=== PATIENT | female | born 1950 | race Caucasian/White ===

== ENCOUNTER 2018-02-08 16:31 | Emergency (ER) | payer SELFPAY ==
[~2018-02-08] VITALS: Ht 157.5 cm; Wt 60.0 kg
[2018-02-08] MEDS ORDERED: SODIUM CHLOR 0.9% 1000 ML INJ 1,000 ML IV SCH (16:42)
[2018-02-08] MEDS ORDERED: ONDANSETRON HCL 4 MG/2 ML VIAL IVP ONE (16:45)
--- NOTE | 2018-02-08 16:55 | PD ---
HPI Chief Complaint: fall Time Seen by Provider: 16:42 Travel History International Travel<30 days: No Contact w/Intl Traveler<30days: No Traveled to known affect area: No History of Present Illness HPI Patient was brought in by EMS. Patient was witnessed walking out of [place] (local bar) when she seemed to completely just fall face forward. Patient did not get up immediately by herself and was helped up by strangers, she was there by herself, so it is unknown as to what her baseline mental status is like. Patient was backboarded check back by EMS and placed in a c- collar Patient denies any known drug allergies Patient denies any significant medical or surgical history. FORMERLY [facility], [facility] Social History Alcohol Use: Yes Tobacco Use: No Allergies-Medications (Allergen,Severity, Reaction): Coded Allergies: No Known Allergies (Unverified , 02/08/18) Review of Systems General / Constitutional: No: Fever Eyes: No: Visual changes HENT: Positive: Other (Scalp hematoma), No: Headaches Cardiovascular: No: Chest Pain or Discomfort Respiratory: No: Shortness of Breath Gastrointestinal: No: Abdominal Pain Genitourinary: No: Dysuria Musculoskeletal: No: Pain Skin: No Rash Neurologic: Positive: Syncope Psychiatric: No: Depression Endocrine: No: Polydipsia Hematologic/Lymphatic: No: Easy Bruising Physical Exam Exam Limitations: Intoxication Narrative GENERAL: SKIN: Warm and dry. Abrasions to left elbow HEAD: Posterior scalp hematoma noted, no crepitus, no step-offs. Normocephalic. EYES: Pupils equal and round. No scleral icterus. No injection or drainage. ENT: No nasal bleeding or discharge. Mucous membranes pink and moist. No hemotympanum NECK: Trachea midline. No JVD. CARDIOVASCULAR: Regular rate and rhythm. RESPIRATORY: No accessory muscle use. Clear to auscultation. Breath sounds equal bilaterally. GASTROINTESTINAL: Abdomen soft, non-tender, nondistended. Hepatic and splenic margins not palpable. MUSCULOSKELETAL: Extremities without clubbing, cyanosis, or edema. No obvious deformities. NEUROLOGICAL: Awake and alert. No obvious cranial nerve deficits. Motor grossly within normal limits. Five out of 5 muscle strength in the arms and legs. Normal speech. PSYCHIATRIC: Appropriate mood and affect; insight and judgment normal. Data Data Last Documented VS Vital Signs Date Time Temp Pulse Resp B/P (MAP) Pulse Ox O2 Delivery O2 Flow Rate FiO2 02/08/18 17:16 98 Room Air 02/08/18 17:02 97.4 82 20 141/69 (93) Orders Orders Complete Blood Count With Diff (02/08/18 16:42) Comprehensive Metabolic Panel (02/08/18 16:42) Lipase (02/08/18 16:42) Urinalysis - C+S If Indicated (02/08/18 16:42) Iv Access Insert/Monitor (02/08/18 16:42) Ecg Monitoring (02/08/18 16:42) Oximetry (02/08/18 16:42) NPO (02/08/18 16:42) Ondansetron Inj (Zofran Inj) (02/08/18 16:45) Sodium Chlor 0.9% 1000 Ml Inj (Ns 1000 M (02/08/18 16:42) Ct Brain W/O Iv Contrast(Rout) (02/08/18 16:42) Alcohol (Ethanol) (02/08/18 16:42) Ct Cerv Spine W/O Contrast (02/08/18 16:42) Urine Culture (02/08/18 17:50) Labs Laboratory Tests Test 02/08/18 17:00 02/08/18 17:50 White Blood Count 8.8 TH/MM3 Red Blood Count 3.34 MIL/MM3 Hemoglobin 12.0 GM/DL Hematocrit 33.4 % Mean Corpuscular Volume 99.9 FL Mean Corpuscular Hemoglobin 36.0 PG Mean Corpuscular Hemoglobin Concent 36.0 % Red Cell Distribution Width 13.1 % Platelet Count 305 TH/MM3 Mean Platelet Volume 7.5 FL Neutrophils (%) (Auto) 67.2 % Lymphocytes (%) (Auto) 23.1 % Monocytes (%) (Auto) 7.6 % Eosinophils (%) (Auto) 1.4 % Basophils (%) (Auto) 0.7 % Neutrophils # (Auto) 5.9 TH/MM3 Lymphocytes # (Auto) 2.0 TH/MM3 Monocytes # (Auto) 0.7 TH/MM3 Eosinophils # (Auto) 0.1 TH/MM3 Basophils # (Auto) 0.1 TH/MM3 CBC Comment DIFF FINAL Differential Comment Blood Urea Nitrogen 12 MG/DL Creatinine 0.80 MG/DL Random Glucose 82 MG/DL Total Protein 7.2 GM/DL Albumin 3.7 GM/DL Calcium Level 8.5 MG/DL Alkaline Phosphatase 73 U/L Aspartate Amino Transf (AST/SGOT) 15 U/L Alanine Aminotransferase (ALT/SGPT) 13 U/L Total Bilirubin 0.3 MG/DL Sodium Level 140 MEQ/L Potassium Level 3.2 MEQ/L Chloride Level 107 MEQ/L Carbon Dioxide Level 22.0 MEQ/L Anion Gap 11 MEQ/L Estimat Glomerular Filtration Rate 72 ML/MIN Lipase 116 U/L Ethyl Alcohol Level 174 MG/DL Urine Color LIGHT-YELLOW Urine Turbidity CLEAR Urine pH 7.0 Urine Specific [place] 1.005 Urine Protein NEG mg/dL Urine Glucose (UA) NEG mg/dL Urine Ketones NEG mg/dL Urine Occult Blood NEG Urine Nitrite NEG Urine Bilirubin NEG Urine Urobilinogen LESS THAN 2.0 MG/DL Urine Leukocyte Esterase SMALL Urine RBC LESS THAN 1 /hpf Urine WBC 10 /hpf Urine Squamous Epithelial Cells 1 /hpf Urine Bacteria FEW /hpf Urine Hyaline Casts 2 /lpf Microscopic Urinalysis Comment CULTURE INDICATED MDM Medical Decision Making Medical Screen Exam Complete: Yes Emergency Medical Condition: Yes Medical Record Reviewed: Yes Differential Diagnosis Intracranial hemorrhage versus C-spine injury versus alcohol induced syncope versus anemia versus dehydration versus electrolyte abnormality Narrative Course CBC shows no leukocytosis, no anemia, normal platelet count, and no left shift UA is consistent with possible UTI Alcohol level is 174 Electrolytes are within normal limits with the exception of mild hypokalemia of 3.2, normal kidney/liver/pancreatic functions Currently awaiting CT head and C-spine as of 182 The head is read by radiologist as negative for intracranial hemorrhage, skull fracture, or brain mass. CT C-spine shows degenerative changes as noted without fractures or listhesis per radiology report Diagnosis Primary Impression: Alcohol-induced syncope Additional Impressions: Abrasions Scalp hematoma Patient Instructions: Alcohol Intoxication (DC), General Instructions, Syncope (ED) Disposition: 01 DISCHARGE HOME Condition: Stable Berlin Skaggs MD Feb 08, 2018 16:55
[2018-02-08 17:02] VITALS: BP 141/69; PULSE 82; RESP 20; TEMP 97.4; O2SAT 97
[2018-02-08 17:16] VITALS: O2SAT 98
[2018-02-08 17:20] LABS: AUTOMATED NEUTROPHIL # 5.9 TH/MM3 (1.8-7.7); BASOPHIL # 0.1 TH/MM3 (0-0.2); BASOPHIL % 0.7 % (0.0-2.0); EOSINOPHIL # 0.1 TH/MM3 (0-0.4); EOSINOPHIL % 1.4 % (0.0-4.0); HEMATOCRIT 33.4 % (35.0-46.0); LYMPH % 23.1 % (9.0-44.0); MEAN CELL VOLUME 99.9 FL (80.0-100.0); MEAN PLATELET VOLUME 7.5 FL (7.0-11.0); MONO % 7.6 % (0.0-8.0); MONOCYTE # 0.7 TH/MM3 (0-0.9); NEUT % 67.2 % (16.0-70.0); PLATELET COUNT 305 TH/MM3 (150-450); RED BLOOD COUNT 3.34 MIL/MM3 (4.00-5.30); RED CELL DISTRIBUTION WIDTH 13.1 % (11.6-17.2); WHITE BLOOD COUNT 8.8 TH/MM3 (4.0-11.0)
[2018-02-08 17:53] LABS: ALBUMIN 3.7 GM/DL (3.4-5.0); BLOOD UREA NITROGEN 12 MG/DL (7-18); CALCIUM 8.5 MG/DL (8.5-10.1); CHLORIDE 107 MEQ/L (98-107); GLOMERULAR FILTRATION RATE 72 ML/MIN (>89); GLUCOSE,RANDOM 82 MG/DL (74-106); SODIUM (NA) 140 MEQ/L (136-145)
[2018-02-08 17:59] LABS: BACTERIA, URINE FEW /hpf; BILIRUBIN, URINE NEG (NEG); BLOOD, URINE NEG (NEG); GLUCOSE,URINE NEG (NEG); HYALINE CAST, URINE 2 /lpf (RARE); KETONE, URINE NEG (NEG); NITRITE,URINE NEG (NEG); SQUAMOUS EPITHELIAL CELL URINE 1 /hpf (0-5); URINE COLOR LIGHT-YELLOW (YELLW/STRAW); URINE LEUKOCYTE ESTERASE SMALL (NEG)
[2018-02-08 18:04] LABS: ALKALINE PHOSPHATASE 73 U/L (45-117); ALT (GPT) 13 U/L (10-53); AST (GOT) 15 U/L (15-37); TOTAL BILIRUBIN ADULT 0.3 MG/DL (0.2-1.0); TOTAL PROTEIN 7.2 GM/DL (6.4-8.2)
--- NOTE | 2018-02-08 18:30 | RADRPT ---
EXAM DATE/TIME: 02/08/2018 17:59 [facility] COMPARISON: No previous studies available for comparison. INDICATIONS : Trauma, fall. RADIATION DOSE: 56.35 CTDIvol (mGy) MEDICAL HISTORY : None SURGICAL HISTORY : None. ENCOUNTER: Initial ACUITY: 1 day PAIN SCALE: 5/10 LOCATION: Bilateral head TECHNIQUE: Multiple contiguous axial images were obtained of the head. Using automated exposure control and adj ustment of the mA and/or kV according to patient size, radiation dose was kept as low as reasonably a chievable to obtain optimal diagnostic quality images. DICOM format image data is available electro nically for review and comparison. FINDINGS: There is diffuse atrophy, patchy periventricular white matter disease, and multiple remote periventri cular lacunar infarcts basal ganglia lacunar infarcts. There also pontine lacunar infarcts. No fractu res. No signs of acute infarct, hemorrhage or mass. Prominent carotid artery calcification. CONCLUSION: No acute disease. Luis Castano MD on February 08, 2018 at 18:25 Board Certified Radiologist. This report was verified electronically.
--- NOTE | 2018-02-08 18:34 | RADRPT ---
EXAM DATE/TIME: 02/08/2018 17:59 [facility] COMPARISON: No previous studies available for comparison. INDICATIONS : Trauma, fall. RADIATION DOSE: 17.87 CTDIvol (mGy) MEDICAL HISTORY : None SURGICAL HISTORY : None. ENCOUNTER: Initial ACUITY: 1 day PAIN SCALE: 5/10 LOCATION: Bilateral neck TECHNIQUE: Volumetric scanning of the cervical spine was performed. Multiplanar reconstructions in the sagittal, coronal and oblique axial planes were performed. Using automated exposure control and adjustment o f the mA and/or kV according to patient size, radiation dose was kept as low as reasonably achievable to obtain optimal diagnostic quality images. DICOM format image data is available electronically f or review and comparison. FINDINGS: There is severe disc space narrowing at C4-5 through C6-7 with multilevel osteophyte formation and un covertebral hypertrophy. No prevertebral soft tissue swelling or compression deformity. The odontoid process is intact. Alignment is normal. Cervicothoracic junction is approximated. There is uncoverteb ral hypertrophy at C4-5 through C6-7 of moderate severity. Prominent bilateral carotid artery calcifi cations are noted. There is severe canal stenosis at C4-5, C5-6 secondary to disc osteophyte disease. CONCLUSION: Degenerative changes are noted without fracture or listhesis. Luis Castano MD on February 08, 2018 at 18:28 Board Certified Radiologist. This report was verified electronically.
[2018-02-08] MEDS ORDERED: cefTRIAXone INJ 1,000 MG in SODIUM CHLORIDE 0.9% INJ 100 ML IV ONE (18:45)
--- NOTE | 2018-02-09 08:58 | EKG ---
Date Performed: 02/08/2018 Time Performed: 16:54:03 PTAGE: 67 years EKG: Sinus rhythm POSSIBLE LEFT ATRIAL ENLARGEMENT INCOMPLETE RIGHT BUNDLE BRANCH BLOCK NONSPECIFIC T-WAVE ABNORMALITY BORDERLINE ECG NO PREVIOUS TRACING DOCTOR: Jamin Harper Interpretating Date/Time 02/09/2018 08:57:00
== END 2018-02-08 19:35 | disposition home or self-care (01) ==
LOC: NEPC 16:31
DX: F10.129 Alcohol abuse with intoxication, unspecified (principal); Y90.6 Blood alcohol level of 120-199 mg/100 ml; R55 Syncope and collapse; S50.312A Abrasion of left elbow, initial encounter; S00.03XA Contusion of scalp, initial encounter; W19.XXXA Unspecified fall, initial encounter; R94.31 Abnormal electrocardiogram [ECG] [EKG]; R82.79 Other abnormal findings on microbiological examination of urine; E87.6 Hypokalemia
CPT/HCPCS: 70450; 72125; 80053; 80307; 81001; 83690; 85025; 87077; 87086; 87186; 93005; 96361; 96365; 96375; 99285; J0696; J2405; J7030

== ENCOUNTER 2018-05-29 19:41 | Inpatient (IN) ==
[2018-05-29] MEDS ORDERED: Sod Chloride 0.9% Inj 1,000 ML IV.SIG ONE ×4 (20:01→22:41)
[2018-05-29] MEDS ORDERED: Folic Acid Inj 1 MG/0.2 ML VIAL IM ONE (20:02)
--- NOTE | 2018-05-29 20:14 | ED ---
HPI General Chief Complaint: Dizziness Stated Complaint: Evac/Medical Time Seen by Provider: 05/29/18 19:54 Source: patient, EMS and RN notes reviewed Mode of arrival: EMS Limitations: altered mental status History of Present Illness HPI Narrative: the patient is a 68-year-old female past medical history significant for hypertension brought in by EMS after she had an episode where she fell at a local [place] station. Apparently patient has been drinking all day got out of her car and collapsed on the floor. She had an episode of defecation. Patient states that she cannot remember exactly what happened. She reports that she only had 3 glasses of wine today. On arrival her blood pressure was 70 systolic however she is alert responding to commands without any signs of deficits oriented to place time and person. MD complaint: dizziness, lightheadedness and near syncope Time: 19:45 Timing: sudden onset Description: near-syncope History of similar episodes: Yes Related Data Home Medications Medication Instructions Recorded Confirmed Unable to Obtain Home Meds 05/29/18 05/29/18 Allergies Allergy/AdvReac Type Severity Reaction Status Date / Time No Known Allergies Allergy Verified 05/29/18 19:49 Review of Systems ROS Unobtainable All other systems reviewed negative except as stated in HPI Constitutional Reports as per HPI Eyes Denies change in vision ENT Denies headache(s) and Denies nasal congestion Cardiovascular Denies chest pain Respiratory Denies dyspnea Gastrointestinal Denies abdominal pain and Reports diarrhea Genitourinary Denies difficulty voiding Musculoskeletal Denies myalgias Comments: abrasion contusion of the left elbow with soft tissue swelling. ROM intact Integumentary/Breasts Denies rash Comments: abrasion on left elbow Neurologic Denies headache(s) Psychiatric Denies depression Comments: intoxicated Endocrine Denies polyuria Hematologic/Lymphatic Denies easy bruising REPLACED BY [facility] Medical History Medical History CVA (cerebral vascular accident) (Acute) HTN (hypertension) (Acute) Social History Social History Substance History: No History of Abuse Smoking Status: Current every day smoker Tobacco Type: Cigarettes How Often Do You Have a Drink Containing Alcohol: 2 to 3 times a week Recent Travel in [facility] within the Last 8 Weeks: No Immunization History Tetanus Immunization: Unsure Hx Influenza Vaccine This Season: No Exam Narrative Exam Narrative: GENERAL: Patient in no distress but hypotensive. Alert and oriented able to respond to questions. Appears intoxicated. Unkempt appears older than age. SKIN: Focused skin assessment warm/dry. Abrasion on left elbow. HEAD: Atraumatic. Normocephalic. EYES: Pupils equal and round. No scleral icterus. No injection or drainage. ENT: No nasal bleeding or discharge. Mucous membranes pink and moist. NECK: Trachea midline. No JVD. CARDIOVASCULAR: Regular rate and rhythm. No murmur appreciated. RESPIRATORY: No accessory muscle use. Clear to auscultation. Breath sounds equal bilaterally. GASTROINTESTINAL: Abdomen soft, non-tender, nondistended. Hepatic and splenic margins not palpable. MUSCULOSKELETAL: No obvious deformities. No clubbing. No cyanosis. No edema. Contusion tenderness to palpation over the left elbow. Full range of motion. NEUROLOGICAL: Awake and alert. No obvious cranial nerve deficits. Motor grossly within normal limits. Normal speech. PSYCHIATRIC: Appropriate mood and affect; insight and judgment normal. Course Reevaluation(s) Reevaluation #1: Patient has received 1.5 L normal saline repeat blood pressures 100 on one systolic. She feels much better just return from CT suite. Time: 20:34 Reevaluation #2: Patient potassium of 2.7 glucose of 41 lactic acid 4.5. X-ray suggestive of pneumonia. We will give her Rocephin and Zithromax. She is responding well to fluid resuscitation. She is going to receive calcium chloride via peripheral IV and a D50. Folate and thiamine have already been given IM. Time: 22:51 Reevaluation #3: Blood pressures improving to 99/53. Patient states he feels nauseous give Zofran ODT. Time: 23:18 Additional Reevaluation(s): Blood pressure is now 111/65. Patient is alert and oriented. Initial infusion of potassium chloride has been completed we will give her 20 mEq p.o. since is able to tolerate by mouth intake. Initial Documented Vital Signs Pulse Rate 77 05/29/18 19:49 Respiratory Rate 18 05/29/18 19:49 Blood Pressure 66/42 L 05/29/18 19:49 Pulse Oximetry 97 05/29/18 19:49 Last Documented Vital Signs Temperature 98.1 F 07/20/18 20:34 Pulse Rate 92 H 05/29/18 23:51 Respiratory Rate 18 05/29/18 23:51 Blood Pressure 118/63 05/29/18 23:51 Pulse Oximetry 98 05/29/18 23:51 Critical Care Time Critical Care Time: Yes Total Critical Care Time: 45 Attestation: Aggregate critical care time was 45 minutes. Time to perform other separately billable procedures was not included in the critical care time. My time did not include minutes spent treating any other patients simultaneously or on activities that did not directly contribute to the patient's treatment. The services I provided to this patient were to treat and/or prevent clinically significant deterioration that could result in: loss of current lifestyle , I provided critical care services requiring my management, as noted below: Chart data review, documentation time, medication orders and management, vital sign assessments/reviewing monitor data, ordering and reviewing lab tests, ordering and interpreting/reviewing x-rays and diagnostic studies, care of the patient and discussion of the patient with the admitting physicians. Medical Decision Making MDM Narrative Medical decision making narrative: Patient with hypertension arrival hypokalemia of 2.7. Glucose of 41. She received several liters of fluids with response to resuscitation. Lactate also markedly elevated at 4.5 without leukocytosis or fever and findings on chest x-ray suggestive of pneumonia. Patient received fluids per sepsis protocol as well as IV antibiotics Rocephin and Zithromax. Also with diarrhea which began may be contributing to her hypotension. Patient appears very dry. She is a daily drinker and does not appear to be drinking a lot of water. Extremely dry membranous mucosa of the oral cavity. Responding well to fluids. Patient discussed with ICU attending. Tox screen positive for alcohol level 137. On multiple reevaluation. Also UA with signs of possible urinary tract infection. Culture sent. Patient will be admitted to the ICU. Lab Data Lab results reviewed: Yes I reviewed the patient's lab results. Result diagrams: 05/29/18 20:28 05/29/18 20:28 Lab Results 05/29/18 05/29/18 05/29/18 Range/Units 20:28 20:28 20:28 WBC 6.9 (4.0-11.0) th/mm3 RBC 2.97 L (4.00-5.30) mil/mm3 Hgb 10.4 L (11.6-15.3) gm/dL Hct 29.6 L (35.0-46.0) % MCV 99.4 (80.0-100.0) fL MCH 35.1 H (27.0-34.0) pg MCHC 35.3 (32.0-36.0) % RDW 13.3 (11.6-17.2) % Plt Count 256 (150-450) th/mm3 MPV 7.6 (7.0-11.0) fL Neut % (Auto) 66.3 (16.0-70.0) % Lymph % (Auto) 23.8 (9.0-44.0) % [place] % (Auto) 7.3 (0.0-8.0) % Eos % (Auto) 1.6 (0.0-4.0) % Baso % (Auto) 1.0 (0.0-2.0) % Neut # (Auto) 4.6 (1.8-7.7) th/mm3 Lymph # (Auto) 1.6 (1.0-4.8) th/mm3 [place] # (Auto) 0.5 (0.0-0.9) th/mm3 Eos # (Auto) 0.1 (0.0-0.4) th/mm3 Baso # (Auto) 0.1 (0.0-0.2) th/mm3 WBC Differential . Differential Comment Auto diff final Sodium 146 H (136-145) meq/L Potassium 2.7 L* (3.5-5.1) meq/L Chloride 113 H (98-107) meq/L Carbon Dioxide 17.6 L (21.0-32.0) meq/L Anion Gap 15 (5-15) meq/L BUN 12 (7-18) mg/dL Creatinine 1.03 H (0.50-1.00) mg/dL Estimated GFR 54 L (>89) mL/min POC Glucose (68-110) mg/dl Random Glucose 41 L* (74-106) mg/dL Lactic Acid 4.5 H* (0.4-2.0) mmol/L Calcium 8.1 L (8.5-10.1) mg/dL Magnesium 1.5 (1.5-2.5) mg/dL Total Bilirubin 0.3 (0.2-1.0) mg/dL AST 15 (15-37) U/L ALT 14 (10-53) U/L Alkaline Phosphatase 61 (45-117) U/L Troponin I Less than 0.02 L (0.02-0.05) ng/mL Total Protein 5.8 L (6.4-8.2) g/dL Albumin 3.2 L (3.4-5.0) g/dL Urine Color (Yellw/Straw) Urine Clarity (Clear) Urine pH (5.0-8.5) Ur Specific [place] (1.002-1.035) Urine Protein (Neg-Trace) mg/dL Urine Glucose (UA) (Negative) mg/dL Urine Ketones (Negative) mg/dL Urine Occult Blood (Negative) Urine Nitrate (Negative) Urine Bilirubin (Negative) Urine Urobilinogen (Less than 2) mg/dL Ur Leukocyte Esterase (Negative) Urine WBC (0-5) /hpf Ur Squamous Epith Cells (0-5) /hpf Urine Mucus (Occasional) /lpf Micro UA Comment Urine Culture Comments Serum Alcohol 136 H (0-5) mg/dL 05/29/18 05/29/18 Range/Units 23:33 23:34 WBC (4.0-11.0) th/mm3 RBC (4.00-5.30) mil/mm3 Hgb (11.6-15.3) gm/dL Hct (35.0-46.0) % MCV (80.0-100.0) fL MCH (27.0-34.0) pg MCHC (32.0-36.0) % RDW (11.6-17.2) % Plt Count (150-450) th/mm3 MPV (7.0-11.0) fL Neut % (Auto) (16.0-70.0) % Lymph % (Auto) (9.0-44.0) % [place] % (Auto) (0.0-8.0) % Eos % (Auto) (0.0-4.0) % Baso % (Auto) (0.0-2.0) % Neut # (Auto) (1.8-7.7) th/mm3 Lymph # (Auto) (1.0-4.8) th/mm3 [place] # (Auto) (0.0-0.9) th/mm3 Eos # (Auto) (0.0-0.4) th/mm3 Baso # (Auto) (0.0-0.2) th/mm3 WBC Differential Differential Comment Sodium (136-145) meq/L Potassium (3.5-5.1) meq/L Chloride (98-107) meq/L Carbon Dioxide (21.0-32.0) meq/L Anion Gap (5-15) meq/L BUN (7-18) mg/dL Creatinine (0.50-1.00) mg/dL Estimated GFR (>89) mL/min POC Glucose 134 H (68-110) mg/dl Random Glucose (74-106) mg/dL Lactic Acid (0.4-2.0) mmol/L Calcium (8.5-10.1) mg/dL Magnesium (1.5-2.5) mg/dL Total Bilirubin (0.2-1.0) mg/dL AST (15-37) U/L ALT (10-53) U/L Alkaline Phosphatase (45-117) U/L Troponin I (0.02-0.05) ng/mL Total Protein (6.4-8.2) g/dL Albumin (3.4-5.0) g/dL Urine Color Colorless (Yellw/Straw) Urine Clarity Clear (Clear) Urine pH 6.0 (5.0-8.5) Ur Specific [place] 1.003 (1.002-1.035) Urine Protein Negative (Neg-Trace) mg/dL Urine Glucose (UA) 50 (Negative) mg/dL Urine Ketones Negative (Negative) mg/dL Urine Occult Blood Negative (Negative) Urine Nitrate Negative (Negative) Urine Bilirubin Negative (Negative) Urine Urobilinogen Less than 2 (Less than 2) mg/dL Ur Leukocyte Esterase Negative (Negative) Urine WBC Less than 1 (0-5) /hpf Ur Squamous Epith Cells <1 (0-5) /hpf Urine Mucus Few H (Occasional) /lpf Micro UA Comment Cath-culture not ind Urine Culture Comments Cath-cult not ind Serum Alcohol (0-5) mg/dL Imaging Data Radiologist's impression: Chest X-Ray 05/29/18 20:02 CONCLUSION: Nonconsolidative right infrahilar infiltrate. Elbow X-Ray 05/29/18 20:02 CONCLUSION: No evidence of recent bony injury. Possible small foreign body in the antecubital region. Head CT 05/29/18 20:02 CONCLUSION: 1. No acute findings in the brain. 2. Stable right-sided lacunar infarcts. . ECG Data EKG Prior to Arrival: Yes Attestation: I personally reviewed and interpreted this ECG as follows: Prior ECG tracings: not available for review Interpretation: EKG obtained at 8 PM revealed normal sinus rhythm 75 bpm. Left atrial enlargement. Normal axis. Incomplete right bundle branch block. LA interval 160 ms. QTc prolonged at 504 ms no signs of acute ischemia. Nonspecific ST-T wave abnormalities. Discharge Plan Discharge Disposition Patient Disposition: 30 Still Patient Discharge Condition Condition: Critical Discharge Details Diagnosis: Severe sepsis, Acute hypokalemia, Pneumonia, Alcohol intoxication Physicians Team ED Provider: Migel Colon Primary Care Provider: UNKNOWN, Attending Provider: Kianna Mckeon Discharge Interventions Interventions: Vital Signs Last Done: 05/29/18 23:51 Status ED Status: Admitted Patient
--- NOTE | 2018-05-29 21:03 | CT ---
EXAM DATE: 05/29/2018 8:35 PM EDT AGE/SEX: 68 years / Female INDICATIONS: Multiple falls. CLINICAL DATA: This is the patient's initial encounter. Patient reports that signs and symptoms have been present for 1 day and indicates a pain score of 3/10. MEDICAL/SURGICAL HISTORY: Cerebrovascular disease. Hypertension. None. RADIATION DOSE: 56.35 CTDI (mGy) COMPARISON: [facility] [place], CT BRAIN W/O CONTRAST, 02/08/2018. . TECHNIQUE: CT of the head without contrast. Using automated exposure control and adjustment of the mA and/or kV according to patient size, radiation dose was kept as low as reasonably achievable to ob tain optimal diagnostic quality images. DICOM format image data is available electronically for revi ew and comparison. FINDINGS: Cerebrum: The ventricles are normal for age. No evidence of midline shift, mass lesion, hemorrhage or acute infarction. Lacunar infarcts in the right caudate body and right posterior limb internal ca psule, unchanged from prior exam 02/08/2018. No extraaxial fluid collections are seen. Posterior Fossa: The cerebellum and brainstem are intact. Stable small lacunar infarct in the right paracentral mraietta. The 4th ventricle is midline. The cerebellopontine angle is unremarkable. Extracranial: The visualized portion of the orbits is intact. Skull: The calvaria is intact. No evidence of skull fracture. CONCLUSION: 1. No acute findings in the brain. 2. Stable right-sided lacunar infarcts. . Electronically signed by: Juan Carlos Mcadams MD 05/29/2018 9:02 PM EDT
[2018-05-29 21:09] LABS: Baso # (Auto) 0.1 th/mm3 (0.0-0.2); Eos # (Auto) 0.1 th/mm3 (0.0-0.4); Eos % (Auto) 1.6 % (0.0-4.0); Hematocrit 29.6 % (35.0-46.0); Hemoglobin 10.4 gm/dL (11.6-15.3); Lymph # (Auto) 1.6 th/mm3 (1.0-4.8); Lymph % (Auto) 23.8 % (9.0-44.0); Mean Corpuscular HGB Conc 35.3 % (32.0-36.0); Mean Corpuscular Hemoglobin 35.1 pg (27.0-34.0); Mean Corpuscular Volume 99.4 fL (80.0-100.0); Mean Platelet Volume 7.6 fL (7.0-11.0); Mono # (Auto) 0.5 th/mm3 (0.0-0.9); Mono % (Auto) 7.3 % (0.0-8.0); Neut # (Auto) 4.6 th/mm3 (1.8-7.7); Neut % (Auto) 66.3 % (16.0-70.0); Platelet Count 256 th/mm3 (150-450); Red Blood Count 2.97 mil/mm3 (4.00-5.30); Red Cell Distribution Width 13.3 % (11.6-17.2); White Blood Count 6.9 th/mm3 (4.0-11.0)
--- NOTE | 2018-05-29 21:16 | XR ---
EXAM DATE: 05/29/2018 9:10 PM EDT AGE/SEX: 68 years / Female INDICATIONS: Shortness of breath. CLINICAL DATA: This is the patient's initial encounter. Patient reports that signs and symptoms have been present for 1 day and indicates a pain score of 0/10. MEDICAL/SURGICAL HISTORY: None. None. COMPARISON: [facility], XR CHEST PA AND LAT, 07/08/2017. . FINDINGS: A single AP view of the chest demonstrates the lungs to be symmetrically aerated. There is an ill-def ined filtrate without consolidation right infrahilar region. No loss of delineation of the right hear t border.. Both hemidiaphragms well delineated. The cardiomediastinal contours are unremarkable. Def ormity of the posterior upper left ribs characteristic of prior surgery, unchanged from prior. CONCLUSION: Nonconsolidative right infrahilar infiltrate. Electronically signed by: Juan Carlos Mcadams MD 05/29/2018 9:15 PM EDT
--- NOTE | 2018-05-29 21:18 | XR ---
EXAM DATE: 05/29/2018 9:12 PM EDT AGE/SEX: 68 years / Female INDICATIONS: Left elbow pain, fall. CLINICAL DATA: This is the patient's initial encounter. Patient reports that signs and symptoms have been present for 1 day and indicates a pain score of 8/10. MEDICAL/SURGICAL HISTORY: None. None. COMPARISON: No prior exams available for comparison. FINDINGS: Bony structures are intact and in normal alignment. Joints are intact without dislocation or signifi cant arthropathy. Osseous density is normal. On the lateral view, there is a punctate opacity in the antecubital region suggesting possible radiopaque foreign body. Angiocath present in the mid forearm . CONCLUSION: No evidence of recent bony injury. Possible small foreign body in the antecubital region. Electronically signed by: Juan Carlos Mcadams MD 05/29/2018 9:16 PM EDT
[2018-05-29] MEDS ORDERED: Azithromycin Inj 500 MG in Sodium Chlor 0.9% Inj 250 ML IV.SIG ONE (21:35)
[2018-05-29 21:41] LABS: Alanine Aminotransferase 14 U/L (10-53); Albumin 3.2 g/dL (3.4-5.0); Alkaline Phosphatase 61 U/L (45-117); Anion Gap 15 meq/L (5-15); Aspartate Aminotransferase 15 U/L (15-37); Blood Urea Nitrogen 12 mg/dL (7-18); Calcium 8.1 mg/dL (8.5-10.1); Carbon Dioxide 17.6 meq/L (21.0-32.0); Chloride 113 meq/L (98-107); Glomerular Filtration Rate 54 mL/min (>89); Magnesium 1.5 mg/dL (1.5-2.5); Sodium 146 meq/L (136-145); Total Protein 5.8 g/dL (6.4-8.2)
[2018-05-29 21:45] LABS: Alcohol 136 mg/dL (0-5); Potassium 2.7 meq/L (3.5-5.1)
[2018-05-29 21:46] LABS: Glucose,Random 41 mg/dL (74-106)
[2018-05-29] MEDS ORDERED: Potassium Chlor 10 mEq Premix 10 MEQ/100 ML PIGGYBACK IV.SIG ONE (21:46)
[2018-05-29] MEDS ORDERED: Dextrose 50% in Water 50 ML Vial IV.PUSH ONE (21:47)
[2018-05-30] LABS: Bilirubin,Urine Negative (Negative); Clarity,Urine Clear (Clear); Color,Urine Colorless (Yellw/Straw); Glucose,Urine (UA) 50 mg/dL (Negative); Leukocyte Esterase,Urine Negative (Negative); Mucus,Urine Few /lpf (Occasional); Nitrite,Urine Negative (Negative); Specific Gravity,Urine 1.003 (1.002-1.035); Squamous Epithelial Cell,Urine <1 /hpf (0-5)
[2018-05-30] MEDS ORDERED: Dextrose 50% in Water 50 ML Vial IV.PUSH PRN (00:52)
[2018-05-30] MEDS ORDERED: Sodium Phosphate Inj 30 MMOL in Sodium Chlor 0.9% Inj 250 ML IV.SIG PRN (00:53)
[2018-05-30] MEDS ORDERED: Potassium Phosphate 500 MG Soluble Tablet PO PRN ×2 (00:53)
[2018-05-30] MEDS ORDERED: Potassium Phosphate Inj 30 MMOL in Sodium Chlor 0.9% Inj 250 ML IV.SIG PRN (00:53)
[2018-05-30] MEDS ORDERED: Magnesium Sulfate Inj 4 GM in Sodium Chlor 0.9% Inj 92 ML IV.SIG PRN (00:53)
[2018-05-30] MEDS ORDERED: Potassium Chlor 20 mEq Premix 20 MEQ/100 ML PIGGYBACK IV.SIG PRN ×2 (00:53)
[2018-05-30] MEDS ORDERED: Potassium Chlor 40 mEq Premix 40 MEQ/100 ML PIGGYBACK IV.SIG PRN ×2 (00:53)
[2018-05-30] MEDS ORDERED: Magnesium Oxide 400 MG Tablet PO PRN (00:53)
[2018-05-30] MEDS ORDERED: Magnesium Sulfate Inj 2 GM in Sodium Chlor 0.9% Inj 96 ML IV.SIG PRN (00:53)
[2018-05-30] MEDS ORDERED: Potassium Chloride 25 MEQ Effervescent Tablet PO PRN (00:53)
--- NOTE | 2018-05-30 01:02 | P.HPCC ---
History of Present Illness Service: Critical care medicine Primary Care Physician: UNKNOWN History of Present Illness: 68-year-old female with past medical history of alcohol abuse, pancreatitis, seizures, hypertension. She was brought to [facility] emergency department for near syncopal event. She had been drinking during the day and got out of the car and fell. Per bystander report she stumbled to the ground but did not have direct head trauma. She defecated and soiled herself; no reported seizure activity.. Upon arrival to the ED she was not able to provide significant history. CT brain demonstrated stable lacunar infarcts. Chest x-ray demonstrated right middle lobe infiltrate. She had no leukocytosis or fever. She was hypoglycemic with blood glucose 41. She received an amp of D50. Her blood pressure was 66 over 40s with heart rate in the 70s. She was administered 4 L normal saline bolus and blood pressure improved with fluid administration. She is now alert and able to provide the above PMH. She reports 2 day history of diarrhea with ~4 large liquid BM per day. No melena or bright red blood per rectum. This afternoon she developed pain in her mid abdomen, nonradiating. She did has had an episode of nausea with vomiting. She states she is status post cholecystectomy and appendectomy. Colonoscopy 1 year ago with "ten polyps", scheduled for f/u in 2 years. States she takes an unknown antihypertensive which she took earlier this morning. She is also on an unknown anticonvulsant. Reports prior history of diabetes but states she is no longer diabetic and does not take any medication for it. She denies chest pain, shortness of breath, productive cough, headache , dysuria, back pain, flank pain, fever, chills. - Diagnosis (1) Hypovolemic shock (2) ETOH abuse (3) Fall (4) Gastric mass (5) Anemia (6) Dehydration (7) Abdominal pain (8) Diarrhea (9) Acute hypernatremia (10) Hypokalemia (11) Hypoglycemia (12) Tobacco abuse (13) Seizure disorder Inpatient Certification: I certify that the inpatient services were ordered in accordance with Medicare regulations governing the order. This includes certification that hospital inpatient services are reasonable and necessary and in the case of services not specified as inpatient-only under 42 CFR 419.22(n), that they are appropriately provided as inpatient services in accordance to with the 2-midnight benchmark under 43 CFR 412.3(e) Review of Systems Constitutional: Denies headache(s) Eyes: Denies change in vision Cardiovascular: Denies chest pain, Denies fast heart rate, Denies shortness of breath with activity, Denies shortness of breath when lying down Respiratory: Denies change in phlegm color, Denies cough, Denies excessive phlegm production Gastrointestinal: Reports abdominal pain, Reports cramping, Reports excessive passing of gas, Reports loose stools, Reports nausea, Reports vomiting Musculoskeletal: Denies back pain Neurologic: Denies convulsions PMFSH - History History Provided By: Patient, Second Hand / EMT - Medical History Medical History: Medical History (Last Updated 05/30/18 @ 02:04 by Kianna Mckeon MD) Abnormal colonoscopy ETOH abuse HTN (hypertension) Pancreatitis Seizures Tobacco abuse - Surgical History Surgical History: Surgical History (Last Updated 05/30/18 @ 02:04 by Kianna Mckeon MD) Hx of colonoscopy with polypectomy Hx of vascular surgery S/P appy S/P cholecystectomy - Family History Family History: Family History (Last Updated 05/30/18 @ 01:40 by Kianna Mckeon MD) Father Hx of CABG - Tobacco History Tobacco Use In Past 30 Days: Yes Smoking Status: Current every day smoker Tobacco Type: Cigarettes Packs Per Day: 1 Years Smoked: 46 - Alcohol History How Often Do You Have a Drink Containing Alcohol: 4 or more times a week ("3 drinks/day") - Substance Use History Substance History: No History of Abuse - Travel History History of Recent Travel: No Recent Travel in the [place] Within the Last 8 Weeks: No Recent Travel Out of the Country Within the Last 8 Weeks: No - Immunization History Tetanus Immunization: Unsure Hx Influenza Vaccine This Season: No Medications and Allergies Active Medications: Active Medications Dextrose (D50w Vial) 50 ml IV.PUSH UNSCH PRN PRN Reason: PER HYPOGLYCEMIA PROTOCOL Glucagon (Glucagon Inj) 1 mg OTHER PRN PRN PRN Reason: for Hypoglycemia Protocol Magnesium Sulfate Inj 4 gm/ (Sodium Chloride) 100 mls @ 50 mls/hr IV.SIG UNSCH PRN PRN Reason: For Magnesium 0.9 - 1.1 mg/dL Magnesium Sulfate Inj 2 gm/ (Sodium Chloride) 100 mls @ 50 mls/hr IV.SIG UNSCH PRN PRN Reason: For Magnesium 1.2 - 1.6 mg/dL Potassium Chloride (Kcl 40 Meq Premix Inj) 40 meq in 100 mls @ 25 mls/hr IV.SIG Q2H PRN PRN Reason: For Potassium 2.8 - 3.2 mEq/L Potassium Chloride (Kcl 20 Meq Premix Inj) 20 meq in 100 mls @ 50 mls/hr IV.SIG Q2H PRN PRN Reason: For Potassium 3.3 - 3.5 mEq/L Potassium Chloride (Kcl 40 Meq Premix Inj) 40 meq in 100 mls @ 25 mls/hr IV.SIG UNSCH PRN PRN Reason: For Potassium 3.3 - 3.5 mEq/L Potassium Chloride (Kcl 20 Meq Premix Inj) 20 meq in 100 mls @ 50 mls/hr IV.SIG Q2H PRN PRN Reason: For Potassium 2.8 - 3.2 mEq/L Potassium Phosphate 30 mmol/ (Sodium Chloride) 260 mls @ 42 mls/hr IV.SIG UNSCH PRN PRN Reason: SEE LABEL COMMENTS Sodium Phosphate 30 mmol/ (Sodium Chloride) 260 mls @ 42 mls/hr IV.SIG UNSCH PRN PRN Reason: For Phosphorus < 2.5 mg/dL Magnesium Oxide (Mag-Ox) 800 mg PO UNSCH PRN PRN Reason: For Magnesium 1.2 - 1.6 mg/dL Potassium Bicarb/Potassium Chloride (K-Lyte Cl Eff) 50 meq PO UNSCH PRN PRN Reason: For Potassium 3.3 - 3.5 mEq/L Potassium Phosphate (K-Phos Original) 2,000 mg PO Q4H PRN PRN Reason: Phosphorus Less Than 2.5 mg/dL Potassium Phosphate (K-Phos Original) 2,000 mg PO UNSCH PRN PRN Reason: SEE LABEL COMMENTS Allergies Allergy/AdvReac Type Severity Reaction Status Date / Time No Known Allergies Allergy Verified 05/29/18 19:49 Home Medications Medication Instructions Recorded Confirmed Type Unable to Obtain Home Meds 05/29/18 05/29/18 History Results - Labs CBC & Chem 7: 05/30/18 06:55 05/30/18 01:14 Labs: Short CBC 05/29/18 Range/Units 20:28 WBC 6.9 (4.0-11.0) th/mm3 Hgb 10.4 L (11.6-15.3) gm/dL Hct 29.6 L (35.0-46.0) % Plt Count 256 (150-450) th/mm3 BMP 05/29/18 20:28 Sodium 146 H Potassium 2.7 L* Chloride 113 H Carbon Dioxide 17.6 L BUN 12 Creatinine 1.03 H Calcium 8.1 L Cardiac Enzymes 05/29/18 Range/Units 20:28 Troponin I Less than 0.02 L (0.02-0.05) ng/mL Liver Function 05/29/18 Range/Units 20:28 Total Bilirubin 0.3 (0.2-1.0) mg/dL AST 15 (15-37) U/L ALT 14 (10-53) U/L Alkaline Phosphatase 61 (45-117) U/L Albumin 3.2 L (3.4-5.0) g/dL Urine 05/29/18 Range/Units 23:34 Urine Color Colorless (Yellw/Straw) Urine Clarity Clear (Clear) Urine pH 6.0 (5.0-8.5) Ur Specific [place] 1.003 (1.002-1.035) Urine Protein Negative (Neg-Trace) mg/dL Urine Glucose (UA) 50 (Negative) mg/dL - Imaging Impressions Chest X-Ray 05/29/18 20:02 CONCLUSION: Nonconsolidative right infrahilar infiltrate. Elbow X-Ray 05/29/18 20:02 CONCLUSION: No evidence of recent bony injury. Possible small foreign body in the antecubital region. Head CT 05/29/18 20:02 CONCLUSION: 1. No acute findings in the brain. 2. Stable right-sided lacunar infarcts. . Exam Vital signs: Vital Signs 05/29/18 19:49 05/29/18 19:53 05/29/18 20:03 Temperature Pulse Rate 77 75 76 Respiratory Rate 18 18 18 Blood Pressure 66/42 L 70/46 L 80/50 L Pulse Oximetry 97 96 97 05/29/18 20:34 05/29/18 21:22 05/29/18 22:47 Temperature 98.1 F Pulse Rate 77 80 83 Respiratory Rate 18 18 18 Blood Pressure 99/54 L 83/49 L 99/53 L Pulse Oximetry 97 96 98 05/29/18 23:51 Temperature Pulse Rate 92 H Respiratory Rate 18 Blood Pressure 118/63 Pulse Oximetry 98 Intake & Output 05/29/18 05/29/18 05/30/18 06:59 18:59 06:59 Intake Total 4450 / 4450 Output Total 1000 / 1000 Balance 3450 / 3450 Weight 56.699 kg Intake: IV 4450 / 4450 Azithromycin Inj 500 MG In NS 250 / 250 Inj 250 ML @ 250 mls/hr IV.SIG ONCE ONE Rx#:[id number] KCl 10 mEq Premix Inj 10 meq In 100 / 100 100 ml @ 100 mls/hr IV.SIG ONCE ONE Rx#:[id number] NS Inj 1,000 ML @ Wide Open IV. 4000 / 4000 SIG BOLUS ONE Rx#:[id number] Rocephin Inj 1,000 MG In NS Inj 100 / 100 100 ML @ 200 mls/hr IV.SIG ONCE ONE Rx#:[id number] Output: Urine Amount (Catheter) 1000 / 1000 Indwelling Urethral Catheter 1000 / 1000 Narrative: GENERAL: Well-nourished, well-developed, disheveled female with smeared eye makeup. SKIN: Warm and dry. HEAD: Atraumatic. Normocephalic. EYES: Pupils equal and round, 4 mm and 2 mm reactive bilaterally.. No scleral icterus. No injection or drainage. ENT: No nasal bleeding or discharge. Mucous membranes dry. Upper dentures. NECK: Trachea midline. No JVD. No meningismus CARDIOVASCULAR: Regular rate and rhythm, sinus rhythm on the monitor.. No murmurs rubs or gallops. RESPIRATORY: Breathing comfortably on room air with no accessory muscle use.. Clear to auscultation. Breath sounds equal bilaterally. GASTROINTESTINAL: Abdomen soft, mild tenderness mid abdomen at umbilicus and just above. No rebound or guarding. Bowel sounds present. No tenderness at McBurney's point. Negative Ruiz's. No costovertebral angle tenderness. MUSCULOSKELETAL: Extremities without clubbing, cyanosis, or edema. Healed surgical scar medial aspect of left leg. NEUROLOGICAL: Awake and alert, now oriented 3. No obvious cranial nerve deficits. No facial droop. Strength is 5 out of 5 in all extremities. Sensation is intact. Speech is mildly slurred Septic Shock Reassessment Septic shock perfusion: reassessment completed Caprini VTE Risk Assessment Caprini VTE Risk Assessment: Moderate/High Risk (score >= 2) Caprini Risk Assessment Model: Point Value = 1 Point Value = 2 Point Value = 3 Point Value = 5 Age 41-60 Minor surgery BMI > 25 kg/m2 Swollen legs Varicose veins or History of unexplained or recurrent spontaneous Oral contraceptives or hormone replacement Sepsis (< 1 month) Serious lung disease, including pneumonia (< 1 month) Abnormal pulmonary function Acute myocardial infarction Congestive heart failure (< 1 month) History of inflammatory bowel disease Medical patient at bed rest Age 61-74 Arthroscopic surgery Major open surgery (> 45 min) Laparoscopic surgery (> 45 min) Malignancy Confined to bed (> 72 hours) Immobilizing plaster cast Central venous access Age >= 75 History of VTE Family history of VTE Factor V Leiden Prothrombin [id number] Lupus anticoagulant Anticardiolipin antibodies Elevated serum homocysteine Heparin-induced thrombocytopenia Other congenital or acquired thrombophilia Stroke (< 1 month) Elective arthroplasty Hip, pelvis, or leg fracture Acute spinal cord injury (< 1 month) Prophylaxis Regimen: Total Risk Factor Score Risk Level Prophylaxis Regimen 0-1 Low Early ambulation 2 Moderate Order ONE of the following: *Sequential Compression Device (SCD) *Heparin 5000 units SQ BID 3-4 Higher Order ONE of the following medications: *Heparin 5000 units SQ TID *Enoxaparin/Lovenox 40 mg SQ daily (WT < 150 kg, CrCl > 30 mL/min) *Enoxaparin/Lovenox 30 mg SQ daily (WT < 150 kg, CrCl > 10-29 mL/min) *Enoxaparin/Lovenox 30 mg SQ BID (WT < 150 kg, CrCl > 30 mL/min) AND/OR *Sequential Compression Device (SCD) 5 or more Highest Order ONE of the following medications: *Heparin 5000 units SQ TID (Preferred with Epidurals) *Enoxaparin/Lovenox 40 mg SQ daily (WT < 150 kg, CrCl > 30 mL/min) *Enoxaparin/Lovenox 30 mg SQ daily (WT < 150 kg, CrCl > 10-29 mL/min) *Enoxaparin/Lovenox 30 mg SQ BID (WT < 150 kg, CrCl > 30 mL/min) AND *Sequential Compression Device (SCD) Assessment and Plan - Problem List (1) Hypovolemic shock Code(s): R57.1 - Hypovolemic shock Status: Acute (2) ETOH abuse Code(s): F10.10 - Alcohol abuse, uncomplicated Status: Chronic (3) Fall Code(s): W19.XXXA - Unspecified fall, initial encounter Status: Acute (4) Gastric mass Code(s): K31.9 - Disease of stomach and duodenum, unspecified Status: Acute (5) Anemia Code(s): D64.9 - Anemia, unspecified Status: Acute (6) Dehydration Code(s): E86.0 - Dehydration Status: Acute (7) Abdominal pain Code(s): R10.9 - Unspecified abdominal pain Status: Acute (8) Diarrhea Code(s): R19.7 - Diarrhea, unspecified Status: Acute (9) Acute hypernatremia Code(s): E87.0 - Hyperosmolality and hypernatremia Status: Acute (10) Hypokalemia Code(s): E87.6 - Hypokalemia Status: Acute (11) Hypoglycemia Code(s): E16.2 - Hypoglycemia, unspecified Status: Acute (12) Tobacco abuse Code(s): Z72.0 - Tobacco use Status: Chronic (13) Seizure disorder Code(s): G40.909 - Epilepsy, unspecified, not intractable, without status epilepticus Status: Chronic - Assessment and Plan Plan: NEURO: Acute alcohol intoxication Follow Alcohol dependence History of seizure disorder She states she is on an unknown anticonvulsant and reports she was compliant with the medication this morning.. She is attempting to find the med list. Unable to find medication list in prior record. Resume anticonvulsant when med list available. She will be on CIWA protocol with Ativan as needed. Thiamine/multivitamin/folic acid supplementation. Alcohol cessation counseling discussed. CT brain negative. RESP: Tobacco abuse Tobacco cessation counseling discussed. CXR with RML infiltrate which may represent aspiration. Albuterol as needed for wheezing CV: Hypotension secondary to hypovolemia History of essential hypertension Took an unknown antihypertensive the morning of 05/29. Hold antihypertensive medications. Received 4 L crystalloid in the emergency department because she appeared clinically dry. Now blood pressure is 105/66 She has good urine output. We will follow-up lactic acid to assess clearance. Continue MIVF with D5LR @ 125/hr. Continue to monitor urine output as marker of perfusion. GI: Abdominal pain Diarrhea present on admission h/o appy and cholecystectomy Check lipase. Check C diff. CT abd/pelvis. FEN/RENAL: Hypernatremia Hypokalemia Dehydration Received KCl 20 mEq p.o. and 10 mEq IV in the emergency department. Repeat potassium is pending. Will replace per ICU electrolyte replacement protocol. Magnesium sulfate 1 g IV now. Check phosphorus level. Stephen catheter was inserted in the emergency department for monitoring of urine output. Monitor BMP. ID: Blood cultures were obtained in the emergency department. UA was negative. Chest x-ray with right middle lobe infiltrate, non-consolidative, which may represent chemical aspiration. She has no leukocytosis , fever, or cough, SOB. She has diarrhea. Will check C diff. She received Rocephin and azithromycin in the emergency department. Will hold off on further abx at this time pending the rest of the workup. HEME: Anemia Monitor CBC ENDO: Hypoglycemia Monitor bedside glucose every hour, treat as needed per hypoglycemia protocol. On D5 LR as per above. Follow-up TSH and cortisol. PROPH: SCD for DVT prophylaxis, no heparin for now due to necrosing gastric mass noted on CT, will need scope/biopsy. . Protonix 40 mg p.o. daily for stress ulcer prophylaxis. ACCESS: Peripheral IV is providing adequate access at this time. Will place central line if needed. Full code Level 3 H&P
[2018-05-30] MEDS ORDERED: LORazepam 1 MG Tablet PO PRN (01:48)
[2018-05-30] MEDS ORDERED: Haloperidol Inj 5 MG/ML Ampul IV.PUSH PRN (01:48)
[2018-05-30] MEDS: Dextrose 5%/Lactated Ringer's 1,000 ML IV.CONT SCH ×3 (01:54→20:18)
[2018-05-30 01:55] LABS: Phosphorus 1.7 mg/dL (2.5-4.9)
[2018-05-30] MEDS ORDERED: Mag Sulf 1 gm/100 ml Premix 100 ML IV.SIG ONE (02:12)
[2018-05-30] MEDS: Multivitamin Inj 10 ML, Thiamine Inj 100 MG, Folic Acid Inj 1 MG in Sodium Chlor 0.9% I... IV.SIG SCH ×2 (02:57→08:45)
[2018-05-30] MEDS ORDERED: Diatrizoate Meglum/Diatrizoate Sod Liq 9 ML UDC ONE (03:44)
--- NOTE | 2018-05-30 06:01 | CT ---
EXAM DATE: 05/30/2018 5:35 AM EDT AGE/SEX: 68 years / Female INDICATIONS: Abdominal pain. CLINICAL DATA: This is the patient's initial encounter. Patient reports that signs and symptoms have been present for 1 day and indicates a pain score of 4/10. MEDICAL/SURGICAL HISTORY: Hypertension. Pancreatitis. Seizures, ETOH abuse. Appendectomy. C holecystectomy. ORAL CONTRAST: Partial prescribed oral contrast ingested. RADIATION DOSE: 5.73 CTDI (mGy) COMPARISON: No prior exams available for comparison. TECHNIQUE: Multiple contiguous axial images were obtained through the abdomen and pelvis following b olus infusion of 95 ml Omnipaque 350 (iohexol) nonionic water-soluble contrast as a single exam dos e. Partial prescribed oral contrast ingested. Using automated exposure control and adjustment of the mA and/or kV according to patient size, radiation dose was kept as low as reasonably achievable to o btain optimal diagnostic quality images. DICOM format image data is available electronically for rev iew and comparison. FINDINGS: Lower Lungs: Atelectasis at the inferior aspect of the right lower lobe. Liver: Cholecystectomy clips in the gallbladder fossa. Diffuse prominence of the intrahepatic and ext rahepatic biliary ducts with the common duct measuring 1.8 cm in diameter proximally. This finding ma y be related to the postcholecystectomy state. Spleen: Homogeneous density without enlargement. Pancreas: Unremarkable without mass or calcification. Kidneys: Normal in size and shape. No evidence of mass or hydronephrosis. Adrenal Glands: Unremarkable. Aorta: Diffuse aortic calcification. Diameter within normal limits. Bowel/Mesentery: There is an exophytic mass extending anteriorly and inferiorly off of the greater c urvature of the stomach measuring 7.1 x 4.1 cm in axial dimensions and 6.8 cm in craniocaudal dimensi on. Numerous colonic diverticula. No evidence of acute diverticulitis. Gas and stool scattered throug hout the colon. Multiple air-fluid levels are seen in the colon. Appendix is not identified. Multiple small bowel air-fluid levels. No evidence of small bowel dilatation. No free air or free fluid. Abdominal Wall: Intact. Retroperitoneum: No evidence of adenopathy in the retrocrural, para-aortic, or deep pelvic regions. Bladder: Stephen catheter place. Reproductive Organs: No abnormal masses or calcifications seen. Inguinal: The inguinal region is unremarkable without evidence of adenopathy. Bony Structures: Unremarkable. CONCLUSION: 1. 7 cm heterogeneous exophytic solid mass extending from the greater curvature of the stomach. Loca tion of the mass along with heterogeneous density and possible areas of necrosis suggests gastrointes tinal stromal tumor as a primary consideration. No enlarged lymph nodes. 2. Colonic diverticulosis but no evidence of acute diverticulitis. 3. Nonspecific mild diffuse colonic distention. Ileus is most likely etiology. No transition point t o indicate obstruction. 4. Status post cholecystectomy. 5. Diffuse prominence of the intrahepatic and extra hepatic biliary ducts may be related to the post cholecystectomy state. 6. Dependent right lower lobe atelectasis versus pulmonary consolidation. Electronically signed by: Jermaine Owens MD 05/30/2018 6:00 AM EDT
[2018-05-30 07:40] LABS: Baso % (Auto) 0.3 % (0.0-2.0); Eos # (Auto) 0.1 th/mm3 (0.0-0.4); Hematocrit 35.6 % (35.0-46.0); Hemoglobin 12.8 gm/dL (11.6-15.3); Lymph # (Auto) 1.1 th/mm3 (1.0-4.8); Lymph % (Auto) 13.2 % (9.0-44.0); Mean Corpuscular HGB Conc 35.9 % (32.0-36.0); Mean Corpuscular Volume 100.3 fL (80.0-100.0); Mean Platelet Volume 7.3 fL (7.0-11.0); Mono # (Auto) 0.7 th/mm3 (0.0-0.9); Mono % (Auto) 8.1 % (0.0-8.0); Neut # (Auto) 6.7 th/mm3 (1.8-7.7); Neut % (Auto) 77.4 % (16.0-70.0); Platelet Count 276 th/mm3 (150-450); Red Blood Count 3.55 mil/mm3 (4.00-5.30); Red Cell Distribution Width 13.5 % (11.6-17.2); White Blood Count 8.7 th/mm3 (4.0-11.0)
[2018-05-30] MEDS ORDERED: Magnesium Sulfate Inj 2 GM in Sodium Chlor 0.9% Inj 96 ML IV.SIG ONE (08:00)
[2018-05-30] MEDS ORDERED: Potassium Phosphate Inj 30 MMOL in Sodium Chlor 0.9% Inj 250 ML IV.SIG ONE (08:00)
--- NOTE | 2018-05-30 09:48 | P.CONGI ---
History of Present Illness Consult date: 05/30/18 Consult reason: Gastric mass Chief complaint: severe sepsis, pneumonia, diarrhea, UTI, History of Present Illness: This is 68-year-old female with past medical history of alcohol abuse , pancreatitis, seizures, hypertension who was brought here for near syncopal event. She fell out of the car for being intoxicated, Etoh level on admission 136. CT brain demonstrated stable lacunar infarcts. Chest x-ray demonstrated right middle lobe infiltrate. She is now alert and able to provide HPI. She reports diarrhea for quite sometimes. Endorses wt loss of 25 lbs over the last yr. No melena or bright red blood per rectum. She an episode of nausea with vomiting prior to admission but none since. She denies abd pain . She states she is status post cholecystectomy and appendectomy. CT of abd showed exophytic solid mass extending fro the grater curvature of the stomach suggests GIST as primary consideration, pt denies previous hx of this. CT also showed ileus with out evidence of obstruction. She never had EGD before, Colonoscopy 1 year ago with "ten polyps", scheduled for f/u in 2 years, not sure of the name of physician. LFTs and lipase wnl. Stools were negative for C-diff. Review of Systems All other systems reviewed negative except as stated in HPI PMFSH - History History Provided By: Patient, Office Nurse Practitioner / EMT - Medical History Medical History: Medical History (Last Reviewed 06/01/18 @ 08:14 by Mounika Don) Abnormal colonoscopy ETOH abuse HTN (hypertension) Pancreatitis Seizures Tobacco abuse - Surgical History Surgical History: Surgical History (Last Updated 05/30/18 @ 02:04 by Kianna Mckeon MD) Hx of colonoscopy with polypectomy Hx of vascular surgery S/P appy S/P cholecystectomy - Family History Family History: Family History (Last Updated 05/30/18 @ 01:40 by Kianna Mckeon MD) Father Hx of CABG - Tobacco History Tobacco Use In Past 30 Days: Yes Smoking Status: Current every day smoker Tobacco Type: Cigarettes Packs Per Day: 1 Years Smoked: 46 - Alcohol History How Often Do You Have a Drink Containing Alcohol: 4 or more times a week ("3 drinks/day") - Substance Use History Substance History: No History of Abuse - Travel History History of Recent Travel: No Recent Travel in the [place] Within the Last 8 Weeks: No Recent Travel Out of the Country Within the Last 8 Weeks: No - Immunization History Tetanus Immunization: Unsure Hx Influenza Vaccine This Season: No Medications and Allergies Active Medications: Active Medications Albuterol (Albuterol Neb (Prn)) 2.5 mg NEB Q2HR NEB PRN PRN Reason: WHEEZING Dextrose (D50w Vial) 50 ml IV.PUSH UNSCH PRN PRN Reason: PER HYPOGLYCEMIA PROTOCOL Diazepam (Valium) 5 mg PO Q8HR [facility] Glucagon (Glucagon Inj) 1 mg OTHER PRN PRN PRN Reason: for Hypoglycemia Protocol Haloperidol Lactate (Haldol Inj) 1 mg IV.PUSH Q15M PRN PRN Reason: for severe agitation Magnesium Sulfate Inj 4 gm/ (Sodium Chloride) 100 mls @ 50 mls/hr IV.SIG UNSCH PRN PRN Reason: For Magnesium 0.9 - 1.1 mg/dL Magnesium Sulfate Inj 2 gm/ (Sodium Chloride) 100 mls @ 50 mls/hr IV.SIG UNSCH PRN PRN Reason: For Magnesium 1.2 - 1.6 mg/dL Potassium Chloride (Kcl 40 Meq Premix Inj) 40 meq in 100 mls @ 25 mls/hr IV.SIG Q2H PRN PRN Reason: For Potassium 2.8 - 3.2 mEq/L Potassium Chloride (Kcl 20 Meq Premix Inj) 20 meq in 100 mls @ 50 mls/hr IV.SIG Q2H PRN PRN Reason: For Potassium 3.3 - 3.5 mEq/L Potassium Chloride (Kcl 40 Meq Premix Inj) 40 meq in 100 mls @ 25 mls/hr IV.SIG UNSCH PRN PRN Reason: For Potassium 3.3 - 3.5 mEq/L Potassium Chloride (Kcl 20 Meq Premix Inj) 20 meq in 100 mls @ 50 mls/hr IV.SIG Q2H PRN PRN Reason: For Potassium 2.8 - 3.2 mEq/L Last Infusion: 05/30/18 04:20 Dose: 25 mls/hr Potassium Phosphate 30 mmol/ (Sodium Chloride) 260 mls @ 42 mls/hr IV.SIG UNSCH PRN PRN Reason: SEE LABEL COMMENTS Sodium Phosphate 30 mmol/ (Sodium Chloride) 260 mls @ 42 mls/hr IV.SIG UNSCH PRN PRN Reason: For Phosphorus < 2.5 mg/dL Dextrose/Lactated Ringer's (D5w/Lr Inj) 1,000 mls @ 125 mls/hr IV.CONT .Q8H [facility] Last Admin: 05/30/18 09:06 Dose: 125 mls/hr Multivitamins 10 ml/ Thiamine HCl 100 mg/ Folic Acid 1 mg/Sodium Chloride 511.2 mls @ 127.8 mls/hr IV.SIG DAILY [facility] Last Admin: 05/30/18 08:45 Dose: 127.8 mls/hr Magnesium Sulfate Inj 2 gm/ (Sodium Chloride) 100 mls @ 50 mls/hr IV.SIG ONCE ONE Stop: 05/30/18 09:59 Last Admin: 05/30/18 08:46 Dose: 50 mls/hr Potassium Phosphate 30 mmol/ (Sodium Chloride) 260 mls @ 43.333 mls/hr IV.SIG ONCE ONE Stop: 05/30/18 13:59 Last Admin: 05/30/18 08:46 Dose: 43.33 mls/hr Lorazepam (Ativan) 1 mg PO Q4H PRN PRN Reason: for CIWA 8-10 Lorazepam (Ativan) 2 mg PO Q2H PRN PRN Reason: for CIWA 11-14 Lorazepam (Ativan Inj) 2 mg IV.PUSH Q2H PRN PRN Reason: for CIWA 11-14 Lorazepam (Ativan Inj) 2 mg IV.PUSH Q1H PRN PRN Reason: for CIWA 15-20 Lorazepam (Ativan Inj) 2 mg IV.PUSH Q15M PRN PRN Reason: for CIWA > 20 Lorazepam (Ativan Inj) 1 mg IV.PUSH Q4H PRN PRN Reason: for CIWA 8-10 Magnesium Oxide (Mag-Ox) 800 mg PO UNSCH PRN PRN Reason: For Magnesium 1.2 - 1.6 mg/dL Pantoprazole Sodium (Protonix) 40 mg PO DAILY [facility] Last Admin: 05/30/18 08:46 Dose: 40 mg Potassium Bicarb/Potassium Chloride (K-Lyte Cl Eff) 50 meq PO UNSCH PRN PRN Reason: For Potassium 3.3 - 3.5 mEq/L Potassium Phosphate (K-Phos Original) 2,000 mg PO Q4H PRN PRN Reason: Phosphorus Less Than 2.5 mg/dL Potassium Phosphate (K-Phos Original) 2,000 mg PO UNSCH PRN PRN Reason: SEE LABEL COMMENTS Allergies Allergy/AdvReac Type Severity Reaction Status Date / Time No Known Allergies Allergy Verified 05/29/18 19:49 Home Medications Medication Instructions Recorded Confirmed Type atorvastatin 40 mg PO HS 06/02/18 06/02/18 History cilostazol 100 mg PO BID 06/02/18 06/02/18 History levetiracetam [Keppra] 500 mg PO HS 06/02/18 06/02/18 History paroxetine HCl 20 mg PO BID 06/02/18 06/02/18 History Exam Vital signs: Vital Signs 05/29/18 19:49 05/29/18 19:53 05/29/18 20:03 Temperature Pulse Rate 77 75 76 Respiratory Rate 18 18 18 Blood Pressure 66/42 L 70/46 L 80/50 L Pulse Oximetry 97 96 97 05/29/18 20:34 05/29/18 21:22 05/29/18 22:47 Temperature 98.1 F Pulse Rate 77 80 83 Respiratory Rate 18 18 18 Blood Pressure 99/54 L 83/49 L 99/53 L Pulse Oximetry 97 96 98 05/29/18 23:51 05/30/18 01:36 05/30/18 02:37 Temperature Pulse Rate 92 H 87 86 Respiratory Rate 18 18 16 Blood Pressure 118/63 91/53 L 100/55 L Pulse Oximetry 98 97 98 05/30/18 04:02 05/30/18 05:12 05/30/18 06:18 Temperature Pulse Rate 85 86 90 Respiratory Rate 18 16 18 Blood Pressure 134/74 127/68 138/67 Pulse Oximetry 97 96 98 05/30/18 07:00 05/30/18 09:21 Temperature 99.0 F Pulse Rate 94 H 98 H Respiratory Rate 14 18 Blood Pressure 141/71 H 146/79 H Pulse Oximetry Intake & Output 05/29/18 05/30/18 05/30/18 18:59 06:59 18:59 Intake Total 4550 / 4550 1000 / 1000 Output Total 1800 / 1800 Balance 2750 / 2750 1000 / 1000 Weight 56.699 kg Intake: IV 4550 / 4550 1000 / 1000 D5W/LR Inj 1,000 ML @ 125 mls/ 1000 / 1000 hr IV.CONT .Q8H [facility] Rx#: [id number] Azithromycin Inj 500 MG In NS 250 / 250 Inj 250 ML @ 250 mls/hr IV.SIG ONCE ONE Rx#:[id number] Magnesium Sulfate 1 gm/D5W 100 100 / 100 ml Premix 100 ML @ 100 mls/hr IV.SIG ONCE ONE Rx#:[id number] KCl 10 mEq Premix Inj 10 meq In 100 / 100 100 ml @ 100 mls/hr IV.SIG ONCE ONE Rx#:[id number] NS Inj 1,000 ML @ Wide Open IV. 4000 / 4000 SIG BOLUS ONE Rx#:[id number] Rocephin Inj 1,000 MG In NS Inj 100 / 100 100 ML @ 200 mls/hr IV.SIG ONCE ONE Rx#:[id number] Output: Urine Amount (Catheter) 1800 / 1800 Indwelling Urethral Catheter 1800 / 1800 - Constitutional no acute distress - Routine HEENT Exam Head: Present: normocephalic Eye: Present: PERRL - Routine Neck Exam Present: supple - Routine Respiratory Exam Present: CTA bilaterally - Routine Cardiovascular Exam Present: RRR - Routine Abdominal Exam Present: soft, normoactive bowel sounds. Absent: tenderness - Routine Skin Exam Present: intact, dry. Absent: jaundice - Routine Neurological Exam Present: alert, oriented X3 Results - Labs CBC & Chem 7: 06/04/18 08:52 06/01/18 05:20 Labs: Laboratory Results - last 24 hr 05/29/18 05/29/18 05/29/18 20:28 20:28 20:28 WBC 6.9 RBC 2.97 L Hgb 10.4 L Hct 29.6 L MCV 99.4 MCH 35.1 H MCHC 35.3 RDW 13.3 Plt Count 256 MPV 7.6 Neut % (Auto) 66.3 Lymph % (Auto) 23.8 [place] % (Auto) 7.3 Eos % (Auto) 1.6 Baso % (Auto) 1.0 Neut # (Auto) 4.6 Lymph # (Auto) 1.6 [place] # (Auto) 0.5 Eos # (Auto) 0.1 Baso # (Auto) 0.1 WBC Differential . Differential Comment Auto diff final Sodium 146 H Potassium 2.7 L* Chloride 113 H Carbon Dioxide 17.6 L Anion Gap 15 BUN 12 Creatinine 1.03 H Estimated GFR 54 L POC Glucose Random Glucose 41 L* Lactic Acid 4.5 H* Calcium 8.1 L Phosphorus Magnesium 1.5 Total Bilirubin 0.3 AST 15 ALT 14 Alkaline Phosphatase 61 Troponin I Less than 0.02 L Total Protein 5.8 L Albumin 3.2 L Lipase TSH Cortisol Urine Color Urine Clarity Urine pH Ur Specific [place] Urine Protein Urine Glucose (UA) Urine Ketones Urine Occult Blood Urine Nitrate Urine Bilirubin Urine Urobilinogen Ur Leukocyte Esterase Urine WBC Ur Squamous Epith Cells Urine Mucus Micro UA Comment Urine Culture Comments Stl C.difficile Tox PCR St C. diff Tox Epid 027 Serum Alcohol 136 H 05/29/18 05/29/18 05/30/18 23:33 23:34 00:30 WBC RBC Hgb Hct MCV MCH MCHC RDW Plt Count MPV Neut % (Auto) Lymph % (Auto) [place] % (Auto) Eos % (Auto) Baso % (Auto) Neut # (Auto) Lymph # (Auto) [place] # (Auto) Eos # (Auto) Baso # (Auto) WBC Differential Differential Comment Sodium Potassium Chloride Carbon Dioxide Anion Gap BUN Creatinine Estimated GFR POC Glucose 134 H Random Glucose Lactic Acid Calcium Phosphorus Magnesium Total Bilirubin AST ALT Alkaline Phosphatase Troponin I Total Protein Albumin Lipase TSH Cortisol Urine Color Colorless Urine Clarity Clear Urine pH 6.0 Ur Specific [place] 1.003 Urine Protein Negative Urine Glucose (UA) 50 Urine Ketones Negative Urine Occult Blood Negative Urine Nitrate Negative Urine Bilirubin Negative Urine Urobilinogen Less than 2 Ur Leukocyte Esterase Negative Urine WBC Less than 1 Ur Squamous Epith Cells <1 Urine Mucus Few H Micro UA Comment Cath-culture not ind Urine Culture Comments Cath-cult not ind Stl C.difficile Tox PCR Negative St C. diff Tox Epid 027 Negative Serum Alcohol 05/30/18 05/30/18 05/30/18 01:10 01:14 01:14 WBC RBC Hgb Hct MCV MCH MCHC RDW Plt Count MPV Neut % (Auto) Lymph % (Auto) [place] % (Auto) Eos % (Auto) Baso % (Auto) Neut # (Auto) Lymph # (Auto) [place] # (Auto) Eos # (Auto) Baso # (Auto) WBC Differential Differential Comment Sodium Potassium 3.0 L Chloride Carbon Dioxide Anion Gap BUN Creatinine Estimated GFR POC Glucose Random Glucose 65 L Lactic Acid 2.1 H Calcium Phosphorus 1.7 L Magnesium Total Bilirubin AST ALT Alkaline Phosphatase Troponin I Total Protein Albumin Lipase 193 TSH Cortisol 15.0 Urine Color Urine Clarity Urine pH Ur Specific [place] Urine Protein Urine Glucose (UA) Urine Ketones Urine Occult Blood Urine Nitrate Urine Bilirubin Urine Urobilinogen Ur Leukocyte Esterase Urine WBC Ur Squamous Epith Cells Urine Mucus Micro UA Comment Urine Culture Comments Stl C.difficile Tox PCR St C. diff Tox Epid 027 Serum Alcohol 05/30/18 05/30/18 05/30/18 01:14 01:40 02:40 WBC RBC Hgb Hct MCV MCH MCHC RDW Plt Count MPV Neut % (Auto) Lymph % (Auto) [place] % (Auto) Eos % (Auto) Baso % (Auto) Neut # (Auto) Lymph # (Auto) [place] # (Auto) Eos # (Auto) Baso # (Auto) WBC Differential Differential Comment Sodium Potassium Chloride Carbon Dioxide Anion Gap BUN Creatinine Estimated GFR POC Glucose 86 138 H Random Glucose Lactic Acid Calcium Phosphorus Magnesium Total Bilirubin AST ALT Alkaline Phosphatase Troponin I Total Protein Albumin Lipase TSH 0.873 Cortisol Urine Color Urine Clarity Urine pH Ur Specific [place] Urine Protein Urine Glucose (UA) Urine Ketones Urine Occult Blood Urine Nitrate Urine Bilirubin Urine Urobilinogen Ur Leukocyte Esterase Urine WBC Ur Squamous Epith Cells Urine Mucus Micro UA Comment Urine Culture Comments Stl C.difficile Tox PCR St C. diff Tox Epid 027 Serum Alcohol 05/30/18 05/30/18 05/30/18 03:10 04:19 06:14 WBC RBC Hgb Hct MCV MCH MCHC RDW Plt Count MPV Neut % (Auto) Lymph % (Auto) [place] % (Auto) Eos % (Auto) Baso % (Auto) Neut # (Auto) Lymph # (Auto) [place] # (Auto) Eos # (Auto) Baso # (Auto) WBC Differential Differential Comment Sodium Potassium Chloride Carbon Dioxide Anion Gap BUN Creatinine Estimated GFR POC Glucose 117 H 91 Random Glucose Lactic Acid Calcium Phosphorus Magnesium Total Bilirubin AST ALT Alkaline Phosphatase Troponin I Less than 0.02 L Total Protein Albumin Lipase TSH Cortisol Urine Color Urine Clarity Urine pH Ur Specific [place] Urine Protein Urine Glucose (UA) Urine Ketones Urine Occult Blood Urine Nitrate Urine Bilirubin Urine Urobilinogen Ur Leukocyte Esterase Urine WBC Ur Squamous Epith Cells Urine Mucus Micro UA Comment Urine Culture Comments Stl C.difficile Tox PCR St C. diff Tox Epid 027 Serum Alcohol 05/30/18 05/30/18 05/30/18 06:55 06:55 07:24 WBC 8.7 RBC 3.55 L Hgb 12.8 D Hct 35.6 MCV 100.3 H MCH 36.0 H MCHC 35.9 RDW 13.5 Plt Count 276 MPV 7.3 Neut % (Auto) 77.4 H Lymph % (Auto) 13.2 [place] % (Auto) 8.1 H Eos % (Auto) 1.0 Baso % (Auto) 0.3 Neut # (Auto) 6.7 Lymph # (Auto) 1.1 [place] # (Auto) 0.7 Eos # (Auto) 0.1 Baso # (Auto) 0.0 WBC Differential . Differential Comment Auto diff final Sodium Potassium Chloride Carbon Dioxide Anion Gap BUN Creatinine Estimated GFR POC Glucose 101 Random Glucose Lactic Acid 1.4 Calcium Phosphorus Magnesium Total Bilirubin AST ALT Alkaline Phosphatase Troponin I Total Protein Albumin Lipase TSH Cortisol Urine Color Urine Clarity Urine pH Ur Specific [place] Urine Protein Urine Glucose (UA) Urine Ketones Urine Occult Blood Urine Nitrate Urine Bilirubin Urine Urobilinogen Ur Leukocyte Esterase Urine WBC Ur Squamous Epith Cells Urine Mucus Micro UA Comment Urine Culture Comments Stl C.difficile Tox PCR St C. diff Tox Epid 027 Serum Alcohol - Imaging Impressions Chest X-Ray 05/29/18 20:02 CONCLUSION: Nonconsolidative right infrahilar infiltrate. Elbow X-Ray 05/29/18 20:02 CONCLUSION: No evidence of recent bony injury. Possible small foreign body in the antecubital region. Head CT 05/29/18 20:02 CONCLUSION: 1. No acute findings in the brain. 2. Stable right-sided lacunar infarcts. . Abdomen/Pelvis CT 05/30/18 00:00 CONCLUSION: 1. 7 cm heterogeneous exophytic solid mass extending from the greater curvature of the stomach. Location of the mass along with heterogeneous density and possible areas of necrosis suggests gastrointestinal stromal tumor as a primary consideration. No enlarged lymph nodes. 2. Colonic diverticulosis but no evidence of acute diverticulitis. 3. Nonspecific mild diffuse colonic distention. Ileus is most likely etiology. No transition point to indicate obstruction. 4. Status post cholecystectomy. 5. Diffuse prominence of the intrahepatic and extra hepatic biliary ducts may be related to the postcholecystectomy state. 6. Dependent right lower lobe atelectasis versus pulmonary consolidation. Assessment and Plan - Plan - Gastric mass- CT of abd showed exophytic solid mass extending fro the grater curvature of the stomach suggests GIST as primary consideration, pt denies previous hx of this. CT also showed ileus with out evidence of obstruction. She never had EGD before, Colonoscopy 1 year ago with "ten polyps", scheduled for f/u in 2 years, not sure of the name of physician. LFTs and lipase wnl. - Diarrhea for a yr- Stools were negative for C-diff. - Wt loss of 25 lbs over the last yr - Ileus- no obstruction, pt moving her bowels, no nausea or vomiting - Alcohol abuse- pt states she drinks every day few drinks at a time. Etoh level on admission 136. - Electrolyte imbalance per attending Plan: - Clears - DT precautions - EGD on Friday - might need EUS or CT bx - Obtain consents - Alcohol cessation - Consider colonoscopy - Supportive care - Pt seen and examined by Dr. Mares and myself and this note is written on his behalf.
[2018-05-30] MEDS: diazePAM 5 MG Tablet PO SCH ×2 (13:33→21:41)
[2018-05-30 14:03] LABS: Activated Partial Thrombo Time 25.2 sec (24.3-30.1)
--- NOTE | 2018-05-30 16:14 | ECG ---
Date Performed: 05/29/2018 Time Performed: 20:00:43 PTAGE: 68 years EKG: Sinus rhythm POSSIBLE LEFT ATRIAL ENLARGEMENT INCOMPLETE RIGHT BUNDLE BRANCH BLOCK PROLONGED QT INTERVAL NONSPECI FIC ST WAVE CHANGE Compared to previous tracing, QT interval somewhat more prolonged. ST segment slig htly more prominent. ABNORMAL ECG PREVIOUS TRACING : 02/08/2018 16.54 DOCTOR: Damien Crum Interpretating Date/Time 05/30/2018 16:12:26
[2018-05-31] MEDS: Dextrose 5%/Lactated Ringer's 1,000 ML IV.CONT SCH ×3 (05:35→20:51)
[2018-05-31] MEDS: diazePAM 5 MG Tablet PO SCH ×3 (05:36→21:57)
[2018-05-31 07:09] LABS: Hematocrit 37.9 % (35.0-46.0); Hemoglobin 13.5 gm/dL (11.6-15.3); Mean Corpuscular HGB Conc 35.6 % (32.0-36.0); Mean Corpuscular Hemoglobin 35.3 pg (27.0-34.0); Mean Corpuscular Volume 99.1 fL (80.0-100.0); Mean Platelet Volume 7.6 fL (7.0-11.0); Platelet Count 246 th/mm3 (150-450); Red Blood Count 3.82 mil/mm3 (4.00-5.30); Red Cell Distribution Width 13.5 % (11.6-17.2); White Blood Count 5.6 th/mm3 (4.0-11.0)
[2018-05-31 07:41] LABS: Alanine Aminotransferase 18 U/L (10-53); Albumin 4.3 g/dL (3.4-5.0); Alkaline Phosphatase 78 U/L (45-117); Anion Gap 8 meq/L (5-15); Aspartate Aminotransferase 19 U/L (15-37); Blood Urea Nitrogen 3 mg/dL (7-18); Calcium 8.9 mg/dL (8.5-10.1); Carbon Dioxide 30.3 meq/L (21.0-32.0); Chloride 105 meq/L (98-107); Glomerular Filtration Rate Greater Than 89 mL/min (>89); Glucose,Random 82 mg/dL (74-106); Sodium 143 meq/L (136-145); Total Protein 7.6 g/dL (6.4-8.2)
[2018-05-31 07:50] LABS: Potassium 2.8 meq/L (3.5-5.1)
--- NOTE | 2018-05-31 10:11 | P.PNIM ---
Subjective Interval history: f/u; gastric mass in no acute distress. denies pain. had diarrhea yesterday but no BM since last night. d/w the RN and no acute issues over night. Physical Exam Vital signs: Vital Signs 05/30/18 12:00 05/30/18 16:00 05/30/18 20:00 Temperature 99.0 F 98.4 F 97.5 F L Pulse Rate 95 H 88 76 Respiratory Rate 20 20 17 Blood Pressure 179/82 H 137/71 125/77 Pulse Oximetry 99 98 99 05/31/18 00:00 05/31/18 04:00 05/31/18 08:00 Temperature 99.1 F 97.4 F L 97.8 F Pulse Rate 78 77 90 Respiratory Rate 19 17 20 Blood Pressure 160/89 H 105/65 165/84 H Pulse Oximetry 98 98 100 Intake & Output 05/30/18 05/31/18 05/31/18 18:59 06:59 18:59 Intake Total 1000 / 1000 1700 / 1700 Output Total 8 / 8 1350 / 1350 Balance 992 / 992 350 / 350 Weight 97.6 kg 56.8 kg Intake: IV 1000 / 1000 1460 / 1460 D5W/LR Inj 1,000 ML @ 125 mls/ 1000 / 1000 1000 / 1000 hr IV.CONT .Q8H [facility] Rx#: [id number] Magnesium Sulfate Inj 2 GM In 100 / 100 NS Inj 96 ML @ 50 mls/hr IV.SIG ONCE ONE Rx#:[id number] KCl 20 mEq Premix Inj 20 meq In 100 / 100 100 ml @ 50 mls/hr IV.SIG Q2H [facility] Rx#:[id number] Potassium Phosphate Inj 30 MMOL 260 / 260 In NS Inj 250 ML @ 43.333 mls/ hr IV.SIG ONCE ONE Rx#:[id number] Oral 240 / 240 Output: Urine 1350 / 1350 Stool 1 / Other: Date of Last Bowel Movement 05/30/18 - Constitutional no acute distress - Routine Respiratory Exam Present: CTA bilaterally - Routine Cardiovascular Exam Present: RRR - Routine Abdominal Exam Present: soft - Routine Extremities Exam Comments: no pedal edema. - Routine Neurological Exam Present: alert, oriented X3 - Urinary Catheter Management Indwelling Urethral Catheter Cath placed during this visit: yes Reason for continuing: Hourly intake/output Insertion date: 05/30/18 Insertion time: 05:03 Results - Labs CBC & Chem 7: 05/31/18 05:47 05/31/18 05:47 Laboratory Results - last 24 hr 05/30/18 05/30/18 05/30/18 09:19 12:40 12:46 WBC RBC Hgb Hct MCV MCH MCHC RDW Plt Count MPV PT 10.0 INR 1.0 APTT 25.2 Sodium Potassium Chloride Carbon Dioxide Anion Gap BUN Creatinine Estimated GFR POC Glucose 99 Random Glucose Calcium Total Bilirubin AST ALT Alkaline Phosphatase Troponin I Less than 0.02 L Total Protein Albumin 05/30/18 05/30/18 05/31/18 16:20 20:23 02:15 WBC RBC Hgb Hct MCV MCH MCHC RDW Plt Count MPV PT INR APTT Sodium Potassium Chloride Carbon Dioxide Anion Gap BUN Creatinine Estimated GFR POC Glucose 164 H 148 H 81 Random Glucose Calcium Total Bilirubin AST ALT Alkaline Phosphatase Troponin I Total Protein Albumin 05/31/18 05/31/18 05/31/18 05:41 05:47 05:47 WBC 5.6 RBC 3.82 L Hgb 13.5 Hct 37.9 MCV 99.1 MCH 35.3 H MCHC 35.6 RDW 13.5 Plt Count 246 MPV 7.6 PT INR APTT Sodium 143 Potassium 2.8 L* Chloride 105 D Carbon Dioxide 30.3 D Anion Gap 8 BUN 3 L Creatinine 0.62 Estimated GFR Greater than 89 POC Glucose 94 Random Glucose 82 Calcium 8.9 D Total Bilirubin 0.6 AST 19 ALT 18 Alkaline Phosphatase 78 Troponin I Total Protein 7.6 D Albumin 4.3 D Microbiology 05/29/18 20:28 Blood - Peripheral Aerobic Blood Culture - Preliminary No growth in 1 day 05/29/18 20:28 Blood - Peripheral Anaerobic Blood Culture - Preliminary No growth in 1 day 05/29/18 20:23 Blood - Peripheral Aerobic Blood Culture - Preliminary No growth in 1 day 05/29/18 20:23 Blood - Peripheral Anaerobic Blood Culture - Preliminary No growth in 1 day Assessment and Plan - Plan Acute alcohol intoxication Alcohol dependence History of seizure disorder She states she is on an unknown anticonvulsant and reports she was compliant with the medication this morning.. She is attempting to find the med list. Resume anticonvulsant when med list available. She will be on CIWA protocol with Ativan as needed. Thiamine/multivitamin/folic acid supplementation. Alcohol cessation counseling discussed. CT brain negative. Tobacco abuse Tobacco cessation counseling discussed. CXR with RML infiltrate which may represent aspiration- however with no fever. will monitor for now. Albuterol as needed for wheezing Hypotension secondary to hypovolemia History of essential hypertension Hold antihypertensive medications. Received 4 L crystalloid in the emergency department because she appeared clinically dry. Continue MIVF with D5LR @ 125/hr. Continue to monitor urine output as marker of perfusion. Abdominal pain Diarrhea present on admission- now has resolved- C-diff negative. gastric mass h/o appy and cholecystectomy GI consult appreciated- for EGD tomorrow. Hypernatremia- resolved. Hypokalemia Hypophosphatemia Dehydration replace electrolytes as needed. Anemia Monitor CBC Hypoglycemia On D5 LR as per above. continue to monitor. Follow-up TSH and cortisol. PROPH: SCD for DVT prophylaxis, no heparin for now due to necrosing gastric mass noted on CT, will need scope/biopsy. Discharge Planning: pending EGD and GI recommendations.
--- NOTE | 2018-05-31 10:23 | P.PNGI ---
Subjective Interval history: Pt resting in bed. Denies nausea, vomiting, abdominal pain. States diarrhea yesterday, this has been going on for multiple months, denies blood in stool. Currently on liquid diet, tolerating. Aware of plan for EGD tomorrow. <Saray James - Last Filed: 05/31/18 10:14> Physical Exam Vital signs: Vital Signs 05/30/18 12:00 05/30/18 16:00 05/30/18 20:00 Temperature 99.0 F 98.4 F 97.5 F L Pulse Rate 95 H 88 76 Respiratory Rate 20 20 17 Blood Pressure 179/82 H 137/71 125/77 Pulse Oximetry 99 98 99 05/31/18 00:00 05/31/18 04:00 05/31/18 08:00 Temperature 99.1 F 97.4 F L 97.8 F Pulse Rate 78 77 90 Respiratory Rate 19 17 20 Blood Pressure 160/89 H 105/65 165/84 H Pulse Oximetry 98 98 100 Intake & Output 05/30/18 05/31/18 05/31/18 18:59 06:59 18:59 Intake Total 1000 / 1000 1700 / 1700 Output Total 8 / 8 1350 / 1350 Balance 992 / 992 350 / 350 Weight 97.6 kg 56.8 kg Intake: IV 1000 / 1000 1460 / 1460 D5W/LR Inj 1,000 ML @ 125 mls/ 1000 / 1000 1000 / 1000 hr IV.CONT .Q8H VASIL[facility] Rx#: [id number] Magnesium Sulfate Inj 2 GM In 100 / 100 NS Inj 96 ML @ 50 mls/hr IV.SIG ONCE ONE Rx#:[id number] KCl 20 mEq Premix Inj 20 meq In 100 / 100 100 ml @ 50 mls/hr IV.SIG Q2H PRN Rx#:[id number] Potassium Phosphate Inj 30 MMOL 260 / 260 In NS Inj 250 ML @ 43.333 mls/ hr IV.SIG ONCE ONE Rx#:[id number] Oral 240 / 240 Output: Urine 1350 / 1350 Stool / Other: Date of Last Bowel Movement 05/30/18 - Constitutional no acute distress - Routine HEENT Exam Head: Present: normocephalic, atraumatic - Routine Respiratory Exam Absent: accessory muscle use - Routine Cardiovascular Exam Present: RRR - Routine Abdominal Exam Present: soft, normoactive bowel sounds. Absent: tenderness - Routine Skin Exam Present: dry, warm - Routine Neurological Exam Present: alert, oriented X3 - Urinary Catheter Management Indwelling Urethral Catheter Cath placed during this visit: yes Reason for continuing: Hourly intake/output Insertion date: 05/30/18 Insertion time: 05:03 <Saray James - Last Filed: 05/31/18 10:14> Vital signs: Vital Signs 05/30/18 16:00 05/30/18 20:00 05/31/18 00:00 Temperature 98.4 F 97.5 F L 99.1 F Pulse Rate 88 76 78 Respiratory Rate 20 17 19 Blood Pressure 137/71 125/77 160/89 H Pulse Oximetry 98 99 98 05/31/18 04:00 05/31/18 08:00 Temperature 97.4 F L 97.8 F Pulse Rate 77 90 Respiratory Rate 17 20 Blood Pressure 105/65 165/84 H Pulse Oximetry 98 100 Intake & Output 05/30/18 05/31/18 05/31/18 18:59 06:59 18:59 Intake Total 1000 / 1000 1700 / 1700 Output Total 8 / 8 1350 / 1350 Balance 992 / 992 350 / 350 Weight 97.6 kg 56.8 kg Intake: IV 1000 / 1000 1460 / 1460 D5W/LR Inj 1,000 ML @ 125 mls/ 1000 / 1000 1000 / 1000 hr IV.CONT .Q8H VAS[facility] Rx#: [id number] Magnesium Sulfate Inj 2 GM In 100 / 100 NS Inj 96 ML @ 50 mls/hr IV.SIG ONCE ONE Rx#:[id number] KCl 20 mEq Premix Inj 20 meq In 100 / 100 100 ml @ 50 mls/hr IV.SIG Q2H PRN Rx#:[id number] Potassium Phosphate Inj 30 MMOL 260 / 260 In NS Inj 250 ML @ 43.333 mls/ hr IV.SIG ONCE ONE Rx#:[id number] Oral 240 / 240 Output: Urine 1350 / 1350 Stool Other: Date of Last Bowel Movement 05/30/18 - Urinary Catheter Management Indwelling Urethral Catheter Cath placed during this visit: no <Jorge L Silva - Last Filed: 05/31/18 12:51> Results - Labs CBC & Chem 7: 05/31/18 05:47 07/22/18 05:47 Laboratory Results - last 24 hr 05/30/18 05/30/18 05/30/18 12:40 12:46 16:20 WBC RBC Hgb Hct MCV MCH MCHC RDW Plt Count MPV PT 10.0 INR 1.0 APTT 25.2 Sodium Potassium Chloride Carbon Dioxide Anion Gap BUN Creatinine Estimated GFR POC Glucose 99 164 H Random Glucose Calcium Total Bilirubin AST ALT Alkaline Phosphatase Total Protein Albumin 05/30/18 05/31/18 05/31/18 20:23 02:15 05:41 WBC RBC Hgb Hct MCV MCH MCHC RDW Plt Count MPV PT INR APTT Sodium Potassium Chloride Carbon Dioxide Anion Gap BUN Creatinine Estimated GFR POC Glucose 148 H 81 94 Random Glucose Calcium Total Bilirubin AST ALT Alkaline Phosphatase Total Protein Albumin 05/31/18 05/31/18 05:47 05:47 WBC 5.6 RBC 3.82 L Hgb 13.5 Hct 37.9 MCV 99.1 MCH 35.3 H MCHC 35.6 RDW 13.5 Plt Count 246 MPV 7.6 PT INR APTT Sodium 143 Potassium 2.8 L* Chloride 105 D Carbon Dioxide 30.3 D Anion Gap 8 BUN 3 L Creatinine 0.62 Estimated GFR Greater than 89 POC Glucose Random Glucose 82 Calcium 8.9 D Total Bilirubin 0.6 AST 19 ALT 18 Alkaline Phosphatase 78 Total Protein 7.6 D Albumin 4.3 D Microbiology 05/29/18 20:28 Blood - Peripheral Aerobic Blood Culture - Preliminary No growth in 1 day 05/29/18 20:28 Blood - Peripheral Anaerobic Blood Culture - Preliminary No growth in 1 day 05/29/18 20:23 Blood - Peripheral Aerobic Blood Culture - Preliminary No growth in 1 day 05/29/18 20:23 Blood - Peripheral Anaerobic Blood Culture - Preliminary No growth in 1 day <Saray James - Last Filed: 05/31/18 10:14> - Labs CBC & Chem 7: 05/31/18 05:47 05/31/18 05:47 Laboratory Results - last 24 hr 05/30/18 05/30/18 05/30/18 12:40 16:20 20:23 WBC RBC Hgb Hct MCV MCH MCHC RDW Plt Count MPV PT 10.0 INR 1.0 APTT 25.2 Sodium Potassium Chloride Carbon Dioxide Anion Gap BUN Creatinine Estimated GFR POC Glucose 164 H 148 H Random Glucose Calcium Phosphorus Total Bilirubin AST ALT Alkaline Phosphatase Total Protein Albumin 05/31/18 05/31/18 05/31/18 02:15 05:41 05:47 WBC 5.6 RBC 3.82 L Hgb 13.5 Hct 37.9 MCV 99.1 MCH 35.3 H MCHC 35.6 RDW 13.5 Plt Count 246 MPV 7.6 PT INR APTT Sodium Potassium Chloride Carbon Dioxide Anion Gap BUN Creatinine Estimated GFR POC Glucose 81 94 Random Glucose Calcium Phosphorus Total Bilirubin AST ALT Alkaline Phosphatase Total Protein Albumin 05/31/18 05/31/18 05/31/18 05:47 05:47 08:20 WBC RBC Hgb Hct MCV MCH MCHC RDW Plt Count MPV PT INR APTT Sodium 143 Potassium 2.8 L* Chloride 105 D Carbon Dioxide 30.3 D Anion Gap 8 BUN 3 L Creatinine 0.62 Estimated GFR Greater than 89 POC Glucose 173 H Random Glucose 82 Calcium 8.9 D Phosphorus 2.7 D Total Bilirubin 0.6 AST 19 ALT 18 Alkaline Phosphatase 78 Total Protein 7.6 D Albumin 4.3 D 05/31/18 11:39 WBC RBC Hgb Hct MCV MCH MCHC RDW Plt Count MPV PT INR APTT Sodium Potassium Chloride Carbon Dioxide Anion Gap BUN Creatinine Estimated GFR POC Glucose 120 H Random Glucose Calcium Phosphorus Total Bilirubin AST ALT Alkaline Phosphatase Total Protein Albumin Microbiology 05/29/18 20:28 Blood - Peripheral Aerobic Blood Culture - Preliminary No growth in 2 days 05/29/18 20:28 Blood - Peripheral Anaerobic Blood Culture - Preliminary No growth in 2 days 05/29/18 20:23 Blood - Peripheral Aerobic Blood Culture - Preliminary No growth in 2 days 05/29/18 20:23 Blood - Peripheral Anaerobic Blood Culture - Preliminary No growth in 2 days <Jorge L Silva - Last Filed: 05/31/18 12:51> Assessment and Plan - Plan - Gastric mass- CT of abd showed exophytic solid mass extending from the greater curvature of the stomach suggests GIST as primary consideration, pt denies previous hx of this. CT also showed ileus with out evidence of obstruction. She never had EGD before, Colonoscopy 1 year ago with "ten polyps", scheduled for f/u in 2 years, not sure of the name of physician. LFTs and lipase wnl. - Diarrhea for a yr- Stools were negative for C-diff. Reports colonoscopy 6 months ago, unsure who did it, states was done in [facility] , searched office records from our service and none seen on this pt. No endoscopic records from . - Wt loss of 25 lbs over the last yr - Ileus- no obstruction, pt moving her bowels, no nausea or vomiting - Alcohol abuse- pt states she drinks every day few drinks at a time. Etoh level on admission 136. - Electrolyte imbalance per attending - History of lung cancer S/P lobectomy (05/31) Pt denies nausea, vomiting, abdominal pain. Tolerating clear liquids. Continues to have diarrhea, has been having this for over 6 months. Aware of plans for EGD tomorrow. All questions answered. Plan: - EGD tomorrow - Obtain consent - NPO after MN - ETOH cessation - Further recommendations based on clinical course Pt has been seen and examined by myself and Dr. Silva and this note is written on his behalf <Saray James - Last Filed: 05/31/18 10:14> - Attending Attestation Patient seen and examined Agree with above Continue with current supportive care Monitor labs EGD tomorrow <Jorge L Silva - Last Filed: 05/31/18 12:51>
[2018-05-31] MEDS: Multivitamin Inj 10 ML, Thiamine Inj 100 MG, Folic Acid Inj 1 MG in Sodium Chlor 0.9% I... IV.SIG SCH (13:50)
[2018-06-01] MEDS ORDERED: Metoprolol Tartrate 25 MG Tablet PO SCH ×2 (03:45)
[2018-06-01] MEDS ORDERED: Chlorhexidine Gluconate 2% 1 Pack (2 Cloths) TOPICAL SCH ×2 (03:45)
[2018-06-01] MEDS ORDERED: Sodium Chlor 0.9% Inj 500 ML IV.SIG SCH ×2 (04:00)
[2018-06-01] MEDS: Dextrose 5%/Lactated Ringer's 1,000 ML IV.CONT SCH ×3 (05:00→21:02)
[2018-06-01] MEDS: diazePAM 5 MG Tablet PO SCH ×3 (05:28→21:01)
--- NOTE | 2018-06-01 11:45 | GIPROC ---
[facility] [address] [facility]. [facility], [id number] EGD PROCEDURE REPORT EXAM DATE: 06/01/2018 PATIENT NAME: Kat Stephens MR #: [id number] BIRTHDATE: 1950 ATTENDING: Eliseo Perdomo MD ORDER #: [id number] INSTRUMENT LENS GRINDER: Olamide Owens and Albina Rodriguez STATUS: inpatient INDICATIONS: The patient is a 68 yr old female here for an EGD due to Mass in the body of the stomach on CT scan Abdominal pain and nausea vomiting PROCEDURE PERFORMED: EGD w/ biopsy MEDICATIONS: None and Per Anesthesia. TOPICAL ANESTHETIC: none CONSENT: The patient understands the risks and benefits of the procedure and understands that these risks include, but are not limited to: sedation, allergic reaction, infection, perforation and/or bleeding. Alternative means of evaluation and treatment include, among others: physical exam, x-rays, and/or surgical intervention. The patient elects to proceed with this endoscopic procedure. medical equipment was checked for proper function. Hand hygiene and appropriate measures for infection prevention was taken. After the risks, benefits and alternatives of the procedure were thoroughly explained, Informed consent was verified, confirmed and timeout was successfully executed by the treatment team. The patient was anesthetized with topical anesthesia and the EC-[id number] (Pedi C) endoscope was introduced through the mouth and advanced to the second portion of the duodenum. Retroflexed views revealed a hiatal hernia and Retroflexed views revealed Small hiatal hernia The gastroscope was then slowly withdrawn and removed. There was about 3 cm mass seems to be submucosal, multiple deep biopsies were performed tissues consistent with GIST, if the biopsy is negative patient will need endoscopic ultrasound with the biopsy. The endoscopy was otherwise normal. ADVERSE EVENTS: There were no complications. IMPRESSIONS: 1. There was about 3 cm mass seems to be submucosal, multiple deep biopsies were performed tissues consistent with GIST, if the biopsy is negative patient will need endoscopic ultrasound with the biopsy 2. Normal endoscopy otherwise 3. Retroflexed views revealed a hiatal hernia 4. Retroflexed views revealed Small hiatal hernia RECOMMENDATIONS: 1. Await biopsy results. Biopsy results will not be ready for 7-10 days. If you don't hear from us in two weeks, call our office for biopsy results. 2. Feet patient Depending on the biopsy patient may need surgical intervention PATIENT CONDITION: stable DISPOSITION: Inpatient REPEAT EXAM: NONE Eliseo Perdomo MD eSigned: Eliseo Perdomo MD 06/01/2018 11:45 AM cc: PATIENT NAME: Kat Stephens MR#: [id number]
--- NOTE | 2018-06-01 11:51 | P.PNGI ---
Subjective Interval history: Patient is laying in bed comfortably, less nausea and vomiting, less abdominal pain today, CT scan showed mass possible GI ST, had an endoscopy with biopsy today Physical Exam Vital signs: Vital Signs 05/31/18 12:00 05/31/18 16:00 05/31/18 20:00 Temperature 98 F 98.2 F 97.9 F Pulse Rate 96 H 96 H 84 Respiratory Rate 20 20 16 Blood Pressure 159/90 H 142/84 H 138/80 Pulse Oximetry 99 99 99 06/01/18 00:00 06/01/18 04:00 Temperature 97.2 F L 97.5 F L Pulse Rate 60 91 H Respiratory Rate 16 16 Blood Pressure 138/63 142/77 H Pulse Oximetry 99 98 Intake & Output 05/31/18 06/01/18 06/01/18 18:59 06:59 18:59 Intake Total 1720 / 1720 1751.2 / 1751.2 Output Total 1999 Balance 1714 / 1714 -248.8 / -248.8 Weight 56.5 kg Intake: IV 1000 / 1000 1511.2 / 1511.2 D5W/LR Inj 1,000 ML @ 125 mls/ 1000 / 1000 1000 / 1000 hr IV.CONT .Q8H VASIL[facility] Rx#: [id number] MVI-12 Inj 10 ML Thiamine Inj 511.2 / 511.2 100 MG Folvite Inj 1 MG In NS Inj 500 ML @ 127.8 mls/hr IV. SIG DAILY VASILIY Rx#:[id number] Oral 720 / 720 240 / 240 Output: Urine 1999 - Constitutional no acute distress - Routine HEENT Exam Head: Present: normocephalic, atraumatic Eye: Present: EOMI, PERRL - Routine Neck Exam Present: supple, full ROM - Routine Chest/Breast/Axilla Exam Comments: Normal exam - Routine Cardiovascular Exam Present: RRR, S1, S2 - Routine Abdominal Exam Present: soft, normoactive bowel sounds - Urinary Catheter Management Indwelling Urethral Catheter Cath placed during this visit: yes Reason for continuing: Hourly intake/output Insertion date: 05/30/18 Insertion time: 05:03 Results - Labs CBC & Chem 7: 05/31/18 05:47 06/01/18 05:20 Laboratory Results - last 24 hr 07/05/31/18 05/31/18 08:20 11:39 16:53 Potassium POC Glucose 173 H 120 H 109 05/31/18 05/31/18 06/01/18 19:54 23:47 05:20 Potassium 3.8 D POC Glucose 109 134 H 06/01/18 06/01/18 05:33 07:35 Potassium POC Glucose 120 H 122 H Microbiology 05/29/18 20:28 Blood - Peripheral Aerobic Blood Culture - Preliminary No growth in 3 days 05/29/18 20:28 Blood - Peripheral Anaerobic Blood Culture - Preliminary No growth in 3 days 05/29/18 20:23 Blood - Peripheral Aerobic Blood Culture - Preliminary No growth in 3 days 05/29/18 20:23 Blood - Peripheral Anaerobic Blood Culture - Preliminary No growth in 3 days Assessment and Plan - Plan - Gastric mass- CT of abd showed exophytic solid mass extending from the greater curvature of the stomach suggests GIST as primary consideration, pt denies previous hx of this. CT also showed ileus with out evidence of obstruction. She never had EGD before, Colonoscopy 1 year ago with "ten polyps", scheduled for f/u in 2 years, not sure of the name of physician. LFTs and lipase wnl. - Diarrhea for a yr- Stools were negative for C-diff. Reports colonoscopy 6 months ago, unsure who did it, states was done in [facility] , searched office records from our service and none seen on this pt. No endoscopic records from . - Wt loss of 25 lbs over the last yr - Ileus- no obstruction, pt moving her bowels, no nausea or vomiting - Alcohol abuse- pt states she drinks every day few drinks at a time. Etoh level on admission 136. - Electrolyte imbalance per attending - History of lung cancer S/P lobectomy (05/31) Pt denies nausea, vomiting, abdominal pain. Tolerating clear liquids. Continues to have diarrhea, has been having this for over 6 months. Aware of plans for EGD tomorrow. All questions answered. 06/01/2018 patient is doing better, no abdominal pain no nausea vomiting, upper endoscopy was done, there was a 3-4 cm mass in the body of the stomach looks like submucosal the biopsy where obtained she also has small hiatal hernia Plan: -Await biopsy results If biopsy negative patient will need endoscopic ultrasound, if positive she will need surgical consult May feed patient at this time
[2018-06-01] MEDS ORDERED: Lidocaine PF 1% Inj 5 ML Syringe INFILTRATN ONE (12:00)
--- NOTE | 2018-06-01 12:25 | P.PNIM ---
Subjective Interval history: in no acute distress. overall doing fine. no abdominal pain, nausea/vomiting. Physical Exam Vital signs: Vital Signs 05/31/18 16:00 05/31/18 20:00 06/01/18 00:00 Temperature 98.2 F 97.9 F 97.2 F L Pulse Rate 96 H 84 60 Respiratory Rate 20 16 16 Blood Pressure 142/84 H 138/80 138/63 Pulse Oximetry 99 99 99 06/01/18 04:00 06/01/18 11:38 Temperature 97.5 F L 97.6 F Pulse Rate 91 H 93 H Respiratory Rate 16 14 Blood Pressure 142/77 H 157/90 H Pulse Oximetry 98 100 Intake & Output 05/31/18 06/01/18 06/01/18 18:59 06:59 18:59 Intake Total 1720 / 1720 1751.2 / 1751.2 Output Total 1999 Balance 1714 / 1714 -248.8 / -248.8 Weight 56.5 kg Intake: IV 1000 / 1000 1511.2 / 1511.2 D5W/LR Inj 1,000 ML @ 125 mls/ 1000 / 1000 1000 / 1000 hr IV.CONT .Q8H VASILIY Rx#: [id number] MVI-12 Inj 10 ML Thiamine Inj 511.2 / 511.2 100 MG Folvite Inj 1 MG In NS Inj 500 ML @ 127.8 mls/hr IV. SIG DAILY VASILIY Rx#:[id number] Oral 720 / 720 240 / 240 Output: Urine 1999 - Routine Respiratory Exam Present: CTA bilaterally - Routine Cardiovascular Exam Present: RRR - Routine Abdominal Exam Present: soft - Routine Extremities Exam Comments: no pedal edema. - Routine Neurological Exam Present: alert, oriented X3 - Urinary Catheter Management Indwelling Urethral Catheter Cath placed during this visit: yes Reason for continuing: Hourly intake/output Insertion date: 05/30/18 Insertion time: 05:03 Results - Labs CBC & Chem 7: 05/31/18 05:47 06/01/18 05:20 Laboratory Results - last 24 hr 05/31/18 05/31/18 05/31/18 16:53 19:54 23:47 Potassium POC Glucose 109 109 134 H 06/01/18 06/01/18 06/01/18 05:20 05:33 07:35 Potassium 3.8 D POC Glucose 120 H 122 H Microbiology 05/29/18 20:28 Blood - Peripheral Aerobic Blood Culture - Preliminary No growth in 3 days 05/29/18 20:28 Blood - Peripheral Anaerobic Blood Culture - Preliminary No growth in 3 days 05/29/18 20:23 Blood - Peripheral Aerobic Blood Culture - Preliminary No growth in 3 days 05/29/18 20:23 Blood - Peripheral Anaerobic Blood Culture - Preliminary No growth in 3 days Assessment and Plan - Plan Acute alcohol intoxication Alcohol dependence History of seizure disorder She states she is on an unknown anticonvulsant and reports she was compliant with the medication this morning.. She is attempting to find the med list. Resume anticonvulsant when med list available. She will be on CIWA protocol with Ativan as needed. Thiamine/multivitamin/folic acid supplementation. Alcohol cessation counseling discussed. CT brain negative. Tobacco abuse Tobacco cessation counseling discussed. CXR with RML infiltrate which may represent aspiration- however with no fever. will monitor for now. Albuterol as needed for wheezing Hypotension secondary to hypovolemia History of essential hypertension Hold antihypertensive medications. continue IV fluid. Abdominal pain Diarrhea present on admission- now has resolved- C-diff negative. gastric mass h/o appy and cholecystectomy GI consult appreciated- s/p EGD with gastric mass- awaiting biopsy result. Hypernatremia- resolved. Hypokalemia Hypophosphatemia Dehydration replace electrolytes as needed. Anemia Monitor CBC Hypoglycemia On D5 LR as per above. continue to monitor. Follow-up TSH and cortisol. PROPH: SCD for DVT prophylaxis, no heparin for now due to necrosing gastric mass noted on CT/EGD. Discharge Planning: pending the result of pathology.
[2018-06-01] MEDS: Multivitamin Inj 10 ML, Thiamine Inj 100 MG, Folic Acid Inj 1 MG in Sodium Chlor 0.9% I... IV.SIG SCH (12:45)
[2018-06-02] MEDS: diazePAM 5 MG Tablet PO SCH ×3 (05:14→21:49)
[2018-06-02] MEDS: Dextrose 5%/Lactated Ringer's 1,000 ML IV.CONT SCH ×2 (05:15)
--- NOTE | 2018-06-02 10:01 | P.PNIM ---
Subjective Interval history: f/u ; gastric mass in no acute distress. denies abdominal pain, nausea or vomiting. no new complaints. Physical Exam Vital signs: Vital Signs 06/01/18 11:38 06/01/18 13:12 06/01/18 17:45 Temperature 97.6 F 98.7 F 98.1 F Pulse Rate 93 H 95 H 115 H Respiratory Rate 14 16 16 Blood Pressure 157/90 H 178/88 H 148/80 H Pulse Oximetry 100 98 95 06/01/18 20:00 06/02/18 00:00 06/02/18 04:00 Temperature 98.1 F 97.4 F L 97.6 F Pulse Rate 95 H 86 83 Respiratory Rate 18 18 18 Blood Pressure 143/80 H 142/82 H 134/83 Pulse Oximetry 99 99 99 Intake & Output 06/01/18 06/02/18 06/02/18 18:59 06:59 18:59 Intake Total 1342 / 1342 Output Total 1000 / 1000 Balance 342 / 342 Weight 55.8 kg Intake: IV 1000 / 1000 D5W/LR Inj 1,000 ML @ 125 mls/ 1000 / 1000 hr IV.CONT .Q8H [facility] Rx#: [id number] Oral 342 / 342 Output: Urine 1000 / 1000 - Constitutional no acute distress - Routine Respiratory Exam Present: CTA bilaterally - Routine Cardiovascular Exam Present: RRR - Routine Abdominal Exam Present: soft - Routine Extremities Exam Comments: no pedal edema. - Routine Neurological Exam Present: alert, oriented X3 - Urinary Catheter Management Indwelling Urethral Catheter Cath placed during this visit: yes Reason for continuing: Hourly intake/output Insertion date: 05/30/18 Insertion time: 05:03 Results - Labs CBC & Chem 7: 05/31/18 05:47 06/01/18 05:20 Laboratory Results - last 24 hr 06/01/18 06/01/18 06/01/18 13:37 16:57 19:51 POC Glucose 86 134 H 119 H 06/02/18 06/02/18 06/02/18 00:57 05:19 07:50 POC Glucose 120 H 106 125 H Microbiology 05/29/18 20:28 Blood - Peripheral Aerobic Blood Culture - Preliminary No growth in 3 days 05/29/18 20:28 Blood - Peripheral Anaerobic Blood Culture - Preliminary No growth in 3 days 05/29/18 20:23 Blood - Peripheral Aerobic Blood Culture - Preliminary No growth in 3 days 05/29/18 20:23 Blood - Peripheral Anaerobic Blood Culture - Preliminary No growth in 3 days Assessment and Plan - Plan Acute alcohol intoxication Alcohol dependence History of seizure disorder She states she is on an unknown anticonvulsant and reports she was compliant with the medication this morning.. She is attempting to find the med list. Resume anticonvulsant when med list available (trying to obtain the home meds from her pharmacy). She will be on CIWA protocol with Ativan as needed. Thiamine/multivitamin/folic acid supplementation. Alcohol cessation counseling discussed. CT brain negative. Tobacco abuse Tobacco cessation counseling discussed. CXR with RML infiltrate which may represent aspiration- however with no fever. will monitor for now. Albuterol as needed for wheezing Hypotension secondary to hypovolemia History of essential hypertension Hold antihypertensive medications. continue IV fluid. Abdominal pain Diarrhea present on admission- now has resolved- C-diff negative. gastric mass h/o appy and cholecystectomy GI consult appreciated- s/p EGD with gastric mass- awaiting biopsy result. Hypernatremia- resolved. Hypokalemia-resolved. Hypophosphatemia Dehydration replace electrolytes as needed. Anemia Monitor CBC Hypoglycemia-resolved PROPH: SCD for DVT prophylaxis, no heparin for now due to necrosing gastric mass noted on CT/EGD. Discharge Planning: d/w the pathology; will be resulted-hopefully by the end of the day. will keep her till pathology resulted; d/w .
[2018-06-02] MEDS: Multivitamin Inj 10 ML, Thiamine Inj 100 MG, Folic Acid Inj 1 MG in Sodium Chlor 0.9% I... IV.SIG SCH (10:56)
--- NOTE | 2018-06-02 12:07 | P.PNGI ---
Subjective Interval history: Pt resting in bed. Denies nausea, vomiting, abdominal pain. <Saray James - Last Filed: 06/02/18 12:04> Physical Exam Vital signs: Vital Signs 06/01/18 13:12 06/01/18 17:45 06/01/18 20:00 Temperature 98.7 F 98.1 F 98.1 F Pulse Rate 95 H 115 H 95 H Respiratory Rate 16 16 18 Blood Pressure 178/88 H 148/80 H 143/80 H Pulse Oximetry 98 95 99 06/02/18 00:00 06/02/18 04:00 06/02/18 08:00 Temperature 97.4 F L 97.6 F 97.2 F L Pulse Rate 86 83 88 Respiratory Rate 18 18 18 Blood Pressure 142/82 H 134/83 171/96 H Pulse Oximetry 99 99 98 Intake & Output 06/01/18 06/02/18 06/02/18 18:59 06:59 18:59 Intake Total 511.2 / 511.2 1342 / 1342 Output Total 1000 / 1000 Balance 511.2 / 511.2 342 / 342 Weight 55.8 kg Intake: IV 511.2 / 511.2 1000 / 1000 D5W/LR Inj 1,000 ML @ 125 mls/ 1000 / 1000 hr IV.CONT .Q8H [facility] Rx#: [id number] MVI-12 Inj 10 ML Thiamine Inj 511.2 / 511.2 100 MG Folvite Inj 1 MG In NS Inj 500 ML @ 127.8 mls/hr IV. SIG DAILY [facility] Rx#:[id number] Oral 342 / 342 Output: Urine 1000 / 1000 - Constitutional no acute distress - Routine HEENT Exam Head: Present: normocephalic, atraumatic - Routine Respiratory Exam Absent: accessory muscle use - Routine Abdominal Exam Present: soft, normoactive bowel sounds. Absent: tenderness - Routine Skin Exam Present: dry, warm - Routine Neurological Exam Present: alert, oriented X3 - Urinary Catheter Management Indwelling Urethral Catheter Cath placed during this visit: yes Reason for continuing: Hourly intake/output Insertion date: 05/30/18 Insertion time: 05:03 <Saray James - Last Filed: 06/02/18 12:04> Vital signs: Vital Signs 06/01/18 17:45 06/01/18 20:00 06/02/18 00:00 Temperature 98.1 F 98.1 F 97.4 F L Pulse Rate 115 H 95 H 86 Respiratory Rate 16 18 18 Blood Pressure 148/80 H 143/80 H 142/82 H Pulse Oximetry 95 99 99 06/02/18 04:00 06/02/18 08:00 Temperature 97.6 F 97.2 F L Pulse Rate 83 88 Respiratory Rate 18 18 Blood Pressure 134/83 171/96 H Pulse Oximetry 99 98 Intake & Output 06/01/18 06/02/18 06/02/18 18:59 06:59 18:59 Intake Total 511.2 / 511.2 1342 / 1342 Output Total 1000 / 1000 Balance 511.2 / 511.2 342 / 342 Weight 55.8 kg Intake: IV 511.2 / 511.2 1000 / 1000 D5W/LR Inj 1,000 ML @ 125 mls/ 1000 / 1000 hr IV.CONT .Q8H [facility] Rx#: [id number] MVI-12 Inj 10 ML Thiamine Inj 511.2 / 511.2 100 MG Folvite Inj 1 MG In NS Inj 500 ML @ 127.8 mls/hr IV. SIG DAILY [facility] Rx#:[id number] Oral 342 / 342 Output: Urine 1000 / 1000 - Urinary Catheter Management Indwelling Urethral Catheter Cath placed during this visit: no <Eliseo Perdomo - Last Filed: 06/02/18 14:48> Results - Labs CBC & Chem 7: 05/31/18 05:47 06/01/18 05:20 Laboratory Results - last 24 hr 06/01/18 06/01/18 06/01/18 13:37 16:57 19:51 POC Glucose 86 134 H 119 H 06/02/18 06/02/18 06/02/18 00:57 05:19 07:50 POC Glucose 120 H 106 125 H Microbiology 05/29/18 20:28 Blood - Peripheral Aerobic Blood Culture - Preliminary No growth in 4 days 05/29/18 20:28 Blood - Peripheral Anaerobic Blood Culture - Preliminary No growth in 4 days 05/29/18 20:23 Blood - Peripheral Aerobic Blood Culture - Preliminary No growth in 4 days 05/29/18 20:23 Blood - Peripheral Anaerobic Blood Culture - Preliminary No growth in 4 days <Saray James - Last Filed: 06/02/18 12:04> - Labs CBC & Chem 7: 05/31/18 05:47 06/01/18 05:20 Laboratory Results - last 24 hr 06/01/18 06/01/18 06/02/18 16:57 19:51 00:57 POC Glucose 134 H 119 H 120 H 06/02/18 06/02/18 06/02/18 05:19 07:50 12:57 POC Glucose 106 125 H 96 Microbiology 05/29/18 20:28 Blood - Peripheral Aerobic Blood Culture - Preliminary No growth in 4 days 05/29/18 20:28 Blood - Peripheral Anaerobic Blood Culture - Preliminary No growth in 4 days 05/29/18 20:23 Blood - Peripheral Aerobic Blood Culture - Preliminary No growth in 4 days 05/29/18 20:23 Blood - Peripheral Anaerobic Blood Culture - Preliminary No growth in 4 days <Eliseo Perdomo - Last Filed: 06/02/18 14:48> Assessment and Plan - Plan - Gastric mass- CT of abd showed exophytic solid mass extending from the greater curvature of the stomach suggests GIST as primary consideration, pt denies previous hx of this. CT also showed ileus with out evidence of obstruction. She never had EGD before, Colonoscopy 1 year ago with "ten polyps", scheduled for f/u in 2 years, not sure of the name of physician. LFTs and lipase wnl. - Diarrhea for a yr- Stools were negative for C-diff. Reports colonoscopy 6 months ago, unsure who did it, states was done in [facility] , searched office records from our service and none seen on this pt. No endoscopic records from . - Wt loss of 25 lbs over the last yr - Ileus- no obstruction, pt moving her bowels, no nausea or vomiting - Alcohol abuse- pt states she drinks every day few drinks at a time. Etoh level on admission 136. - Electrolyte imbalance per attending - History of lung cancer S/P lobectomy (05/31) Pt denies nausea, vomiting, abdominal pain. Tolerating clear liquids. Continues to have diarrhea, has been having this for over 6 months. Aware of plans for EGD tomorrow. All questions answered. 06/01/2018 patient is doing better, no abdominal pain no nausea vomiting, upper endoscopy was done, there was a 3-4 cm mass in the body of the stomach looks like submucosal the biopsy where obtained she also has small hiatal hernia (06/02) Pt with no GI complaints at this time. Biopsy pending. Pt denies family history of gastric tumors, does state brother with colon cancer. Tolerating regular diet Plan: - Biopsy pending - If biopsy negative patient will need endoscopic ultrasound, if positive she will need surgical consult - Diet as tolerated - Continue with supportive care - Further recommendations to follow Pt has been seen and examined by myself and Dr. Perdomo and this note is written on his behalf <Saray James - Last Filed: 06/02/18 12:04> - Attending Attestation Patient was seen and examined, patient is doing well less symptomatic no abdominal pain, awaiting biopsy results if it is positive for just then she will need surgical intervention if it is negative then she will need endoscopic ultrasound for more biopsies, this was discussed with hospitalist service <Eliseo Perdomo - Last Filed: 06/02/18 14:48>
[2018-06-02] MEDS: amLODIPine 10 MG Tablet PO SCH (13:59)
[2018-06-02] MEDS: levETIRAcetam 500 MG Tablet PO SCH (21:48)
[2018-06-03] MEDS: diazePAM 5 MG Tablet PO SCH ×3 (05:13→21:09)
[2018-06-03] MEDS: amLODIPine 10 MG Tablet PO SCH (09:04)
--- NOTE | 2018-06-03 10:23 | P.PNIM ---
Subjective Interval history: in no acute distress. denies abdominal pain,nausea, vomiting. no new complaints. Physical Exam Vital signs: Vital Signs 06/02/18 12:00 06/02/18 16:00 06/02/18 20:00 Temperature 97.4 F L 97.7 F 97.6 F Pulse Rate 100 H 100 H 98 H Respiratory Rate 18 16 18 Blood Pressure 119/80 161/96 H 133/86 Pulse Oximetry 99 100 100 06/02/18 20:14 06/02/18 21:14 06/02/18 22:14 Temperature 97.6 F 97.4 F L 97.5 F L Pulse Rate 98 H 89 89 Respiratory Rate 18 20 18 Blood Pressure 133/86 134/72 101/68 Pulse Oximetry 100 100 100 06/02/18 23:14 06/03/18 00:00 06/03/18 04:00 Temperature 97.4 F L 97.6 F 97.5 F L Pulse Rate 79 79 106 H Respiratory Rate 18 18 18 Blood Pressure 117/75 149/89 H 108/71 Pulse Oximetry 96 98 96 06/03/18 08:00 Temperature 97.5 F L Pulse Rate 124 H Respiratory Rate 18 Blood Pressure 96/61 L Pulse Oximetry 99 Intake & Output 06/02/18 06/03/18 06/03/18 18:59 06:59 18:59 Intake Total 1471.2 / 1471.2 120 / 120 Output Total 1200 / 1200 300 / 300 Balance 271.2 / 271.2 -180 / -180 Weight 56.1 kg Intake: IV 511.2 / 511.2 MVI-12 Inj 10 ML Thiamine Inj 511.2 / 511.2 100 MG Folvite Inj 1 MG In NS Inj 500 ML @ 127.8 mls/hr IV. SIG DAILY [facility] Rx#:[id number] Oral 960 / 960 120 / 120 Output: Urine 1200 / 1200 300 / 300 Other: # Bowel Movements 0 - Constitutional no acute distress - Routine Respiratory Exam Present: CTA bilaterally - Routine Cardiovascular Exam Present: RRR - Routine Abdominal Exam Present: soft - Routine Extremities Exam Comments: no pedal edema. - Routine Neurological Exam Present: alert, oriented X3 - Urinary Catheter Management Indwelling Urethral Catheter Cath placed during this visit: yes Reason for continuing: Hourly intake/output Insertion date: 05/30/18 Insertion time: 05:03 Results - Labs CBC & Chem 7: 05/31/18 05:47 06/01/18 05:20 Laboratory Results - last 24 hr 06/02/18 06/02/18 06/02/18 12:57 16:20 20:02 POC Glucose 96 131 H 134 H 06/03/18 06/03/18 01:05 05:08 POC Glucose 100 108 Microbiology 05/29/18 20:28 Blood - Peripheral Aerobic Blood Culture - Preliminary No growth in 4 days 05/29/18 20:28 Blood - Peripheral Anaerobic Blood Culture - Preliminary No growth in 4 days 05/29/18 20:23 Blood - Peripheral Aerobic Blood Culture - Preliminary No growth in 4 days 05/29/18 20:23 Blood - Peripheral Anaerobic Blood Culture - Preliminary No growth in 4 days Assessment and Plan - Plan Acute alcohol intoxication Alcohol dependence History of seizure disorder She states she is on an unknown anticonvulsant and reports she was compliant with the medication this morning.. She is attempting to find the med list. Resume anticonvulsants. She will be on CIWA protocol with Ativan as needed. Thiamine/multivitamin/folic acid supplementation. Alcohol cessation counseling discussed. CT brain negative. Tobacco abuse Tobacco cessation counseling discussed. CXR with RML infiltrate which may represent aspiration- however with no fever. will monitor for now. Albuterol as needed for wheezing Hypotension secondary to hypovolemia-resolved. History of essential hypertension Hold antihypertensive medications. continue IV fluid. Abdominal pain-resolved. Diarrhea present on admission- now has resolved- C-diff negative. gastric mass h/o appy and cholecystectomy GI consult appreciated- s/p EGD with gastric mass- pathology with no histopathologic abnormalities. possible endoscopic US- awaiting GI f/u/ recommendations. Hypernatremia- resolved. Hypokalemia-resolved. Hypophosphatemia-resolved. Dehydration replace electrolytes as needed. Anemia Monitor CBC diabetes mellitus with Hypoglycemia-resolved Glipizide on hold. PROPH: SCD for DVT prophylaxis, no heparin for now -awaiting GI f/u. Discharge Planning: when cleared by GI.
[2018-06-03] MEDS: Multivitamin Inj 10 ML, Thiamine Inj 100 MG, Folic Acid Inj 1 MG in Sodium Chlor 0.9% I... IV.SIG SCH (11:15)
[2018-06-03] MEDS ORDERED: Lidocaine PF 1% Inj 5 ML Syringe INFILTRATN ONE (12:00)
--- NOTE | 2018-06-03 12:57 | P.PNGI ---
Subjective Interval history: Pt resting in bed, no GI complaints today. No BM. NPO for EUS with FNA today. <Saray James - Last Filed: 06/03/18 12:54> Physical Exam Vital signs: Vital Signs 06/02/18 16:00 06/02/18 20:00 06/02/18 20:14 Temperature 97.7 F 97.6 F 97.6 F Pulse Rate 100 H 98 H 98 H Respiratory Rate 16 18 18 Blood Pressure 161/96 H 133/86 133/86 Pulse Oximetry 100 100 100 06/02/18 21:14 06/02/18 22:14 06/02/18 23:14 Temperature 97.4 F L 97.5 F L 97.4 F L Pulse Rate 89 89 79 Respiratory Rate 20 18 18 Blood Pressure 134/72 101/68 117/75 Pulse Oximetry 100 100 96 06/03/18 00:00 06/03/18 04:00 06/03/18 08:00 Temperature 97.6 F 97.5 F L 97.5 F L Pulse Rate 79 106 H 124 H Respiratory Rate 18 18 18 Blood Pressure 149/89 H 108/71 96/61 L Pulse Oximetry 98 96 99 Intake & Output 06/02/18 06/03/18 06/03/18 18:59 06:59 18:59 Intake Total 1471.2 / 1471.2 120 / 120 Output Total 1200 / 1200 300 / 300 Balance 271.2 / 271.2 -180 / -180 Weight 56.1 kg Intake: IV 511.2 / 511.2 MVI-12 Inj 10 ML Thiamine Inj 511.2 / 511.2 100 MG Folvite Inj 1 MG In NS Inj 500 ML @ 127.8 mls/hr IV. SIG DAILY [facility] Rx#:[id number] Oral 960 / 960 120 / 120 Output: Urine 1200 / 1200 300 / 300 Other: # Bowel Movements 0 - Constitutional no acute distress - Routine HEENT Exam Head: Present: normocephalic, atraumatic - Routine Respiratory Exam Absent: accessory muscle use - Routine Abdominal Exam Present: soft, normoactive bowel sounds. Absent: tenderness - Routine Skin Exam Present: dry, warm - Routine Neurological Exam Present: alert, oriented X3 - Urinary Catheter Management Indwelling Urethral Catheter Cath placed during this visit: yes Reason for continuing: Hourly intake/output Insertion date: 05/30/18 Insertion time: 05:03 <Saray James - Last Filed: 06/03/18 12:54> Vital signs: Vital Signs 06/02/18 20:00 06/02/18 20:14 06/02/18 21:14 Temperature 97.6 F 97.6 F 97.4 F L Pulse Rate 98 H 98 H 89 Respiratory Rate 18 18 20 Blood Pressure 133/86 133/86 134/72 Pulse Oximetry 100 100 100 06/02/18 22:14 06/02/18 23:14 06/03/18 00:00 Temperature 97.5 F L 97.4 F L 97.6 F Pulse Rate 89 79 79 Respiratory Rate 18 18 18 Blood Pressure 101/68 117/75 149/89 H Pulse Oximetry 100 96 98 06/03/18 04:00 06/03/18 08:00 06/03/18 12:00 Temperature 97.5 F L 97.5 F L 98.0 F Pulse Rate 106 H 124 H 65 Respiratory Rate 18 18 18 Blood Pressure 108/71 96/61 L 103/57 L Pulse Oximetry 96 99 99 Intake & Output 06/02/18 06/03/18 06/03/18 18:59 06:59 18:59 Intake Total 1471.2 / 1471.2 120 / 120 911.2 / 911.2 Output Total 1200 / 1200 300 / 300 Balance 271.2 / 271.2 -180 / -180 911.2 / 911.2 Weight 56.1 kg Intake: IV 511.2 / 511.2 511.2 / 511.2 MVI-12 Inj 10 ML Thiamine Inj 511.2 / 511.2 511.2 / 511.2 100 MG Folvite Inj 1 MG In NS Inj 500 ML @ 127.8 mls/hr IV. SIG DAILY [facility] Rx#:[id number] Oral 960 / 960 120 / 120 Anesthesia Amount 400 / 400 Output: Urine 1200 / 1200 300 / 300 Other: # Bowel Movements 0 - Urinary Catheter Management Indwelling Urethral Catheter Cath placed during this visit: no <Eliseo Perdomo - Last Filed: 06/03/18 18:11> Results - Labs CBC & Chem 7: 05/31/18 05:47 06/01/18 05:20 Laboratory Results - last 24 hr 06/02/18 06/02/18 06/02/18 12:57 16:20 20:02 POC Glucose 96 131 H 134 H 06/03/18 06/03/18 06/03/18 01:05 05:08 12:03 POC Glucose 100 108 100 Microbiology 05/29/18 20:28 Blood - Peripheral Aerobic Blood Culture - Final No growth in 5 days 05/29/18 20:28 Blood - Peripheral Anaerobic Blood Culture - Final No growth in 5 days 05/29/18 20:23 Blood - Peripheral Aerobic Blood Culture - Final No growth in 5 days 05/29/18 20:23 Blood - Peripheral Anaerobic Blood Culture - Final No growth in 5 days <Saray James - Last Filed: 06/03/18 12:54> - Labs CBC & Chem 7: 05/31/18 05:47 06/01/18 05:20 Laboratory Results - last 24 hr 06/02/18 06/03/18 06/03/18 20:02 01:05 05:08 POC Glucose 134 H 100 108 06/03/18 06/03/18 06/03/18 12:03 16:22 17:59 POC Glucose 100 83 81 Microbiology 05/29/18 20:28 Blood - Peripheral Aerobic Blood Culture - Final No growth in 5 days 05/29/18 20:28 Blood - Peripheral Anaerobic Blood Culture - Final No growth in 5 days 05/29/18 20:23 Blood - Peripheral Aerobic Blood Culture - Final No growth in 5 days 05/29/18 20:23 Blood - Peripheral Anaerobic Blood Culture - Final No growth in 5 days <Eliseo Perdomo - Last Filed: 06/03/18 18:11> Assessment and Plan - Plan - Gastric mass- CT of abd showed exophytic solid mass extending from the greater curvature of the stomach suggests GIST as primary consideration, pt denies previous hx of this. CT also showed ileus with out evidence of obstruction. She never had EGD before, Colonoscopy 1 year ago with "ten polyps", scheduled for f/u in 2 years, not sure of the name of physician. LFTs and lipase wnl. - Diarrhea for a yr- Stools were negative for C-diff. Reports colonoscopy 6 months ago, unsure who did it, states was done in [facility] , searched office records from our service and none seen on this pt. No endoscopic records from . - Wt loss of 25 lbs over the last yr - Ileus- no obstruction, pt moving her bowels, no nausea or vomiting - Alcohol abuse- pt states she drinks every day few drinks at a time. Etoh level on admission 136. - Electrolyte imbalance per attending - History of lung cancer S/P lobectomy (05/31) Pt denies nausea, vomiting, abdominal pain. Tolerating clear liquids. Continues to have diarrhea, has been having this for over 6 months. Aware of plans for EGD tomorrow. All questions answered. 06/01/2018 patient is doing better, no abdominal pain no nausea vomiting, upper endoscopy was done, there was a 3-4 cm mass in the body of the stomach looks like submucosal the biopsy where obtained she also has small hiatal hernia (06/02) Pt with no GI complaints at this time. Biopsy pending. Pt denies family history of gastric tumors, does state brother with colon cancer. Tolerating regular diet (06/03) Pt with no GI complaints. NPO for EUS with FNA today. Gastric mass biopsy negative Plan: - EUS with FNA today - Obtain consent - NPO - Continue with supportive care - Further recommendations to follow Pt has been seen and examined by myself and Dr. Perdomo and this note is written on his behalf <Saray James - Last Filed: 06/03/18 12:54> - Plan Patient was seen and examined, agree with above note, biopsy was negative most likely submucosal lesion, I discussed the case with Dr. Scott and he will do an endoscopic ultrasound with biopsy today <Eliseo Perdomo - Last Filed: 06/03/18 18:11>
--- NOTE | 2018-06-03 17:31 | P.PCN ---
Date of procedure: 06/03/18 Pre-op diagnosis: Gastric mass Post-op diagnosis: other (GIST versus leiomyoma) Procedure: PROCEDURE PERFORMED EUS with FNA INDICATION FOR PROCEDURE Gastric mass PROCEDURE: The procedure, risks and benefits were discussed with Patient/POA and informed consent was obtained. Anesthesia sedated Patient with Diprivan. Patient was placed in the left lateral decubitus position. Endoscopic ultrasound: The Pentax videoscope was introduced through the oropharynx and advanced to the stomach. 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
[2018-06-03] MEDS: levETIRAcetam 500 MG Tablet PO SCH (20:35)
[2018-06-04 04:05] VITALS: BP 107/57; PULSE 69; RESP 16; TEMP 97.2; O2SAT 97
[2018-06-04] MEDS: diazePAM 5 MG Tablet PO SCH (05:09)
[2018-06-04] MEDS: Multivitamin Inj 10 ML, Thiamine Inj 100 MG, Folic Acid Inj 1 MG in Sodium Chlor 0.9% I... IV.SIG SCH (08:33)
[2018-06-04] MEDS: amLODIPine 10 MG Tablet PO SCH (08:34)
[2018-06-04 09:41] LABS: Hematocrit 34.2 % (35.0-46.0); Hemoglobin 12.3 gm/dL (11.6-15.3); Mean Corpuscular HGB Conc 35.8 % (32.0-36.0); Mean Corpuscular Hemoglobin 35.1 pg (27.0-34.0); Mean Corpuscular Volume 98.2 fL (80.0-100.0); Mean Platelet Volume 8.1 fL (7.0-11.0); Platelet Count 256 th/mm3 (150-450); Red Blood Count 3.49 mil/mm3 (4.00-5.30); Red Cell Distribution Width 13.2 % (11.6-17.2); White Blood Count 7.7 th/mm3 (4.0-11.0)
--- NOTE | 2018-06-04 10:01 | P.PNIM ---
Subjective Interval history: in no acute distress. denies abdominal pain, nausea or vomiting. no new complaints. Physical Exam Vital signs: Vital Signs 06/03/18 12:00 06/03/18 17:35 06/03/18 17:45 Temperature 98.0 F 96.7 F L Pulse Rate 65 63 67 Respiratory Rate 18 20 20 Blood Pressure 103/57 L 84/52 L 88/54 L Pulse Oximetry 99 100 100 06/03/18 18:00 06/03/18 18:15 06/03/18 18:41 Temperature 97.9 F 97.4 F L 97.2 F L Pulse Rate 65 62 68 Respiratory Rate 18 20 18 Blood Pressure 121/68 96/59 L 122/74 Pulse Oximetry 98 98 06/03/18 18:42 06/03/18 20:00 06/04/18 00:00 Temperature 97.5 F L 97.8 F Pulse Rate 66 65 Respiratory Rate 18 18 Blood Pressure 125/79 99/57 L Pulse Oximetry 98 98 98 06/04/18 04:04 Temperature 97.2 F L Pulse Rate 69 Respiratory Rate 16 Blood Pressure 107/57 L Pulse Oximetry 97 Intake & Output 06/03/18 06/04/18 06/04/18 18:59 06:59 18:59 Intake Total 1511.2 / 1511.2 360 / 360 Output Total 0 / 0 Balance 1511.2 / 1511.2 360 / 360 Intake: IV 511.2 / 511.2 MVI-12 Inj 10 ML Thiamine Inj 511.2 / 511.2 100 MG Folvite Inj 1 MG In NS Inj 500 ML @ 127.8 mls/hr IV. SIG DAILY [facility] Rx#:[id number] Oral 0 / 0 360 / 360 Anesthesia Amount 1000 / 1000 Output: Urine 0 / 0 Other: # Voids 2 Date of Last Bowel Movement 06/03/18 06/03/18 # Bowel Movements 1 2 - Constitutional no acute distress - Routine Respiratory Exam Present: CTA bilaterally - Routine Cardiovascular Exam Present: RRR - Routine Abdominal Exam Present: soft - Routine Extremities Exam Comments: no pedal edema. - Routine Neurological Exam Present: alert, oriented X3 - Urinary Catheter Management Indwelling Urethral Catheter Cath placed during this visit: yes Reason for continuing: Hourly intake/output Insertion date: 05/30/18 Insertion time: 05:03 Results - Labs CBC & Chem 7: 06/04/18 08:52 06/01/18 05:20 Laboratory Results - last 24 hr 06/03/18 06/03/18 06/03/18 12:03 16:22 17:59 WBC RBC Hgb Hct MCV MCH MCHC RDW Plt Count MPV POC Glucose 100 83 81 06/03/18 06/04/18 06/04/18 20:34 02:18 05:10 WBC RBC Hgb Hct MCV MCH MCHC RDW Plt Count MPV POC Glucose 130 H 100 96 06/04/18 06/04/18 07:56 08:52 WBC 7.7 RBC 3.49 L Hgb 12.3 Hct 34.2 L MCV 98.2 MCH 35.1 H MCHC 35.8 RDW 13.2 Plt Count 256 MPV 8.1 POC Glucose 91 Microbiology 05/29/18 20:28 Blood - Peripheral Aerobic Blood Culture - Final No growth in 5 days 05/29/18 20:28 Blood - Peripheral Anaerobic Blood Culture - Final No growth in 5 days 05/29/18 20:23 Blood - Peripheral Aerobic Blood Culture - Final No growth in 5 days 05/29/18 20:23 Blood - Peripheral Anaerobic Blood Culture - Final No growth in 5 days - Procedures EGD/ endoscopic ultrasound. Assessment and Plan - Plan Acute alcohol intoxication Alcohol dependence History of seizure disorder She states she is on an unknown anticonvulsant and reports she was compliant with the medication this morning.. She is attempting to find the med list. Resumed anticonvulsants. She will be on CIWA protocol with Ativan as needed. Thiamine/multivitamin/folic acid supplementation. Alcohol cessation counseling discussed. CT brain negative. Tobacco abuse Tobacco cessation counseling discussed. CXR with RML infiltrate which may represent aspiration- however with no fever. will monitor for now. Albuterol as needed for wheezing Hypotension secondary to hypovolemia-resolved. History of essential hypertension Hold antihypertensive medications. continue IV fluid. Abdominal pain-resolved. Diarrhea present on admission- now has improved- C-diff negative. gastric mass h/o appy and cholecystectomy GI consult appreciated- s/p EGD with gastric mass- pathology with no histopathologic abnormalities. s/p endoscopic US - biopsy pending. Hypernatremia- resolved. Hypokalemia-resolved. Hypophosphatemia-resolved. Dehydration replace electrolytes as needed. Anemia Monitor CBC diabetes mellitus with Hypoglycemia-resolved Glipizide on hold. PROPH: SCD for DVT prophylaxis, no heparin for now -awaiting GI f/u. Discharge Planning: hopefully soon- when cleared by GI.
--- NOTE | 2018-06-04 10:17 | P.DS ---
Date of admission: 05/29/18 23:13 Primary care physician: UNKNOWN Brief History from admission: 68-year-old female with past medical history of alcohol abuse, pancreatitis, seizures, hypertension. She was brought to [facility] emergency department for near syncopal event. She had been drinking during the day and got out of the car and fell. Per bystander report she stumbled to the ground but did not have direct head trauma. She defecated and soiled herself; no reported seizure activity.. Upon arrival to the ED she was not able to provide significant history. CT brain demonstrated stable lacunar infarcts. Chest x-ray demonstrated right middle lobe infiltrate. She had no leukocytosis or fever. She was hypoglycemic with blood glucose 41. She received an amp of D50. Her blood pressure was 66 over 40s with heart rate in the 70s. She was administered 4 L normal saline bolus and blood pressure improved with fluid administration. She is now alert and able to provide the above PMH. She reports 2 day history of diarrhea with ~4 large liquid BM per day. No melena or bright red blood per rectum. This afternoon she developed pain in her mid abdomen, nonradiating. She did has had an episode of nausea with vomiting. She states she is status post cholecystectomy and appendectomy. Colonoscopy 1 year ago with "ten polyps", scheduled for f/u in 2 years. States she takes an unknown antihypertensive which she took earlier this morning. She is also on an unknown anticonvulsant. Reports prior history of diabetes but states she is no longer diabetic and does not take any medication for it. She denies chest pain, shortness of breath, productive cough, headache , dysuria, back pain, flank pain, fever, chills. DS: Medications - Discharge Medications Prescriptions: [id number] [Adults Multivitamin] 1 tab PO DAILY #30 tab thiamine HCl (vitamin B1) 100 mg PO DAILY #30 tab DS: Summary Hospital Course: patient was found to have a gastric mass along with hypoglycemia. she underwent EGD with biopsy; with no abnormal histopathologic features. she then underwent endoscopic ultrasound; cytology is pending at this time and needs to be followed up as outpatient. her Glipizide was discontinued due to hypoglycemia. her blood sugar levels stabilized. her BP meds will be held at this time since her BP remained on low side during this hospitalization.she will have a f/u with PCP and GI. - Time Spent with Patient Total time spent providing and/or coordinating discharge services: Less than 30 minutes - Quality: VTE Deep Vein Thrombosis/Pulmonary Embolism Present on Admission: No Exam Vital signs: Vital Signs 06/03/18 12:00 06/03/18 17:35 06/03/18 17:45 Temperature 98.0 F 96.7 F L Pulse Rate 65 63 67 Respiratory Rate 18 20 20 Blood Pressure 103/57 L 84/52 L 88/54 L Pulse Oximetry 99 100 100 06/03/18 18:00 06/03/18 18:15 06/03/18 18:41 Temperature 97.9 F 97.4 F L 97.2 F L Pulse Rate 65 62 68 Respiratory Rate 18 20 18 Blood Pressure 121/68 96/59 L 122/74 Pulse Oximetry 98 98 06/03/18 18:42 06/03/18 20:00 06/04/18 00:00 Temperature 97.5 F L 97.8 F Pulse Rate 66 65 Respiratory Rate 18 18 Blood Pressure 125/79 99/57 L Pulse Oximetry 98 98 98 06/04/18 04:04 Temperature 97.2 F L Pulse Rate 69 Respiratory Rate 16 Blood Pressure 107/57 L Pulse Oximetry 97 Intake & Output 06/03/18 06/04/18 06/04/18 18:59 06:59 18:59 Intake Total 1511.2 / 1511.2 360 / 360 Output Total 0 / 0 Balance 1511.2 / 1511.2 360 / 360 Intake: IV 511.2 / 511.2 MVI-12 Inj 10 ML Thiamine Inj 511.2 / 511.2 100 MG Folvite Inj 1 MG In NS Inj 500 ML @ 127.8 mls/hr IV. SIG DAILY [facility] Rx#:[id number] Oral 0 / 0 360 / 360 Anesthesia Amount 1000 / 1000 Output: Urine 0 / 0 Other: # Voids 2 Date of Last Bowel Movement 06/03/18 06/03/18 # Bowel Movements 1 2 Results Procedures completed during hospitalization: EGD/ endoscopic ultrasound. Completed studies during hospitalization: Pending at discharge 06/01/18 13:15 Surgical [PTH] Routine Pending studies at discharge: Pending at discharge 06/03/18 Cytology [PTH] Routine Labs on day of discharge: Labs from last 24 hours 06/04/18 06/04/1806/04/18 08:52 07:56 05:10 WBC 7.7 RBC 3.49 L Hgb 12.3 Hct 34.2 L MCV 98.2 MCH 35.1 H MCHC 35.8 RDW 13.2 Plt Count 256 MPV 8.1 POC Glucose 91 96 06/04/18 06/03/18 06/03/18 02:18 20:34 17:59 WBC RBC Hgb Hct MCV MCH MCHC RDW Plt Count MPV POC Glucose 100 130 H 81 06/03/18 06/03/18 16:22 12:03 WBC RBC Hgb Hct MCV MCH MCHC RDW Plt Count MPV POC Glucose 83 100 - Impressions ITS Impressions Chest X-Ray 05/29/18 20:02 CONCLUSION: Nonconsolidative right infrahilar infiltrate. Elbow X-Ray 05/29/18 20:02 CONCLUSION: No evidence of recent bony injury. Possible small foreign body in the antecubital region. Head CT 05/29/18 20:02 CONCLUSION: 1. No acute findings in the brain. 2. Stable right-sided lacunar infarcts. . Abdomen/Pelvis CT 05/30/18 00:00 CONCLUSION: 1. 7 cm heterogeneous exophytic solid mass extending from the greater curvature of the stomach. Location of the mass along with heterogeneous density and possible areas of necrosis suggests gastrointestinal stromal tumor as a primary consideration. No enlarged lymph nodes. 2. Colonic diverticulosis but no evidence of acute diverticulitis. 3. Nonspecific mild diffuse colonic distention. Ileus is most likely etiology. No transition point to indicate obstruction. 4. Status post cholecystectomy. 5. Diffuse prominence of the intrahepatic and extra hepatic biliary ducts may be related to the postcholecystectomy state. 6. Dependent right lower lobe atelectasis versus pulmonary consolidation. Discharge Plan - Discharge Disposition Patient Disposition: Discharge Home - Discharge Condition Condition: Critical - Discharge Order Discharge Orders: Discharge Order (Routine); Ordered 06/04/18 Ordered By: Nancy Prieto - Physicians Team Primary Care Provider: UNKNOWN, Attending Provider: Nancy Prieto Other Providers: Jorge L Silva MD ; [employer]
--- NOTE | 2018-06-04 13:17 | P.PNGI ---
Subjective Interval history: Pt standing at her door, waiting for her ride, states she is going home today. She is aware to follow up with our service outpatient. No GI complaints at this time <Saray James - Last Filed: 06/04/18 13:14> Physical Exam Vital signs: Vital Signs 06/03/18 17:35 06/03/18 17:45 06/03/18 18:00 Temperature 96.7 F L 97.9 F Pulse Rate 63 67 65 Respiratory Rate 20 20 18 Blood Pressure 84/52 L 88/54 L 121/68 Pulse Oximetry 100 100 98 06/03/18 18:15 06/03/18 18:41 06/03/18 18:42 Temperature 97.4 F L 97.2 F L Pulse Rate 62 68 Respiratory Rate 20 18 Blood Pressure 96/59 L 122/74 Pulse Oximetry 98 98 06/03/18 20:00 06/04/18 00:00 06/04/18 04:04 Temperature 97.5 F L 97.8 F 97.2 F L Pulse Rate 66 65 69 Respiratory Rate 18 18 16 Blood Pressure 125/79 99/57 L 107/57 L Pulse Oximetry 98 98 97 Intake & Output 06/03/18 06/04/18 06/04/18 18:59 06:59 18:59 Intake Total 1511.2 / 1511.2 360 / 360 Output Total 0 / 0 Balance 1511.2 / 1511.2 360 / 360 Intake: IV 511.2 / 511.2 MVI-12 Inj 10 ML Thiamine Inj 511.2 / 511.2 100 MG Folvite Inj 1 MG In NS Inj 500 ML @ 127.8 mls/hr IV. SIG DAILY [facility] Rx#:[id number] Oral 0 / 0 360 / 360 Anesthesia Amount 1000 / 1000 Output: Urine 0 / 0 Other: # Voids 2 Date of Last Bowel Movement 06/03/18 06/03/18 06/04/18 # Bowel Movements 1 2 - Constitutional no acute distress - Routine HEENT Exam Head: Present: normocephalic, atraumatic - Routine Respiratory Exam Absent: accessory muscle use - Routine Abdominal Exam Present: soft, normoactive bowel sounds. Absent: tenderness - Routine Skin Exam Present: dry, warm - Routine Neurological Exam Present: alert, oriented X3 - Urinary Catheter Management Indwelling Urethral Catheter Cath placed during this visit: yes Reason for continuing: Hourly intake/output Insertion date: 05/30/18 Insertion time: 05:03 <Saray James - Last Filed: 06/04/18 13:14> Vital signs: Vital Signs 06/03/18 18:42 06/03/18 20:00 06/04/18 00:00 Temperature 97.5 F L 97.8 F Pulse Rate 66 65 Respiratory Rate 18 18 Blood Pressure 125/79 99/57 L Pulse Oximetry 98 98 98 06/04/18 04:04 Temperature 97.2 F L Pulse Rate 69 Respiratory Rate 16 Blood Pressure 107/57 L Pulse Oximetry 97 Intake & Output 06/03/18 06/04/18 06/04/18 18:59 06:59 18:59 Intake Total 1511.2 / 1511.2 360 / 360 Output Total 0 / 0 Balance 1511.2 / 1511.2 360 / 360 Intake: IV 511.2 / 511.2 MVI-12 Inj 10 ML Thiamine Inj 511.2 / 511.2 100 MG Folvite Inj 1 MG In NS Inj 500 ML @ 127.8 mls/hr IV. SIG DAILY [facility] Rx#:[id number] Oral 0 / 0 360 / 360 Anesthesia Amount 1000 / 1000 Output: Urine 0 / 0 Other: # Voids 2 Date of Last Bowel Movement 06/03/18 06/03/18 06/04/18 # Bowel Movements 1 2 - Urinary Catheter Management Indwelling Urethral Catheter Cath placed during this visit: no <Eliseo Perdomo - Last Filed: 06/04/18 18:41> Results - Labs CBC & Chem 7: 06/04/18 08:52 06/01/18 05:20 Laboratory Results - last 24 hr 06/03/18 06/03/18 06/03/18 16:22 17:59 20:34 WBC RBC Hgb Hct MCV MCH MCHC RDW Plt Count MPV POC Glucose 83 81 130 H 06/04/18 06/04/18 06/04/18 02:18 05:10 07:56 WBC RBC Hgb Hct MCV MCH MCHC RDW Plt Count MPV POC Glucose 100 96 91 06/04/18 08:52 WBC 7.7 RBC 3.49 L Hgb 12.3 Hct 34.2 L MCV 98.2 MCH 35.1 H MCHC 35.8 RDW 13.2 Plt Count 256 MPV 8.1 POC Glucose Microbiology 05/29/18 20:28 Blood - Peripheral Aerobic Blood Culture - Final No growth in 5 days 05/29/18 20:28 Blood - Peripheral Anaerobic Blood Culture - Final No growth in 5 days 05/29/18 20:23 Blood - Peripheral Aerobic Blood Culture - Final No growth in 5 days 05/29/18 20:23 Blood - Peripheral Anaerobic Blood Culture - Final No growth in 5 days - Procedures EGD/ endoscopic ultrasound. <Saray James - Last Filed: 06/04/18 13:14> - Labs CBC & Chem 7: 06/04/18 08:52 06/01/18 05:20 Laboratory Results - last 24 hr 06/03/18 06/04/18 06/04/18 20:34 02:18 05:10 WBC RBC Hgb Hct MCV MCH MCHC RDW Plt Count MPV POC Glucose 130 H 100 96 06/04/18 06/04/18 07:56 08:52 WBC 7.7 RBC 3.49 L Hgb 12.3 Hct 34.2 L MCV 98.2 MCH 35.1 H MCHC 35.8 RDW 13.2 Plt Count 256 MPV 8.1 POC Glucose 91 <Eliseo Perdomo - Last Filed: 06/04/18 18:41> Assessment and Plan - Plan - Gastric mass- CT of abd showed exophytic solid mass extending from the greater curvature of the stomach suggests GIST as primary consideration, pt denies previous hx of this. CT also showed ileus with out evidence of obstruction. She never had EGD before, Colonoscopy 1 year ago with "ten polyps", scheduled for f/u in 2 years, not sure of the name of physician. LFTs and lipase wnl. - Diarrhea for a yr- Stools were negative for C-diff. Reports colonoscopy 6 months ago, unsure who did it, states was done in [facility] , searched office records from our service and none seen on this pt. No endoscopic records from . - Wt loss of 25 lbs over the last yr - Ileus- no obstruction, pt moving her bowels, no nausea or vomiting - Alcohol abuse- pt states she drinks every day few drinks at a time. Etoh level on admission 136. - Electrolyte imbalance per attending - History of lung cancer S/P lobectomy EGD --> there was a 3-4 cm mass in the body of the stomach looks like submucosal the biopsy where obtained she also has small hiatal hernia. Biopsy negative EUS --> Antral mass measuring about 4 x 3 cm this was a hypoechoic mass somewhat inhomogeneous stemming from the fourth layer most suggestive of a GIST versus a leiomyoma FNA was performed with samples obtained. No lymphadenopathy noted. Pancreatic body and tail were unremarkable and so was the pancreatic duct. Probable GIST vs leiomyoma Plan: DC today Follow up with Dr. Silva EUS biopsy pending Pt has been seen and examined by myself and Dr. Perdomo and this note is written on his behalf <Saray James - Last Filed: 06/04/18 13:14> - Plan Patient was seen and examined, agree with above note, pending biopsy from the EUS, she will follow with Dr. Scott in 1 week <Eliseo Perdomo - Last Filed: 06/04/18 18:41>
== END 2018-06-04 15:09 | disposition home or self-care (01) ==
LOC: NEPC 19:41 → NEDA 23:13 → N04 05-30 11:14
PROVIDERS: ADMIT Internal Medicine; ATTEND Internal Medicine
PROC: PANENDO (2018-06-01 11:11)

== ENCOUNTER 2018-08-31 17:28 | Inpatient (IN) ==
[2018-08-31] MEDS ORDERED: Sod Chloride 0.9% Inj 1,000 ML IV.SIG SCH ×2 (17:45→19:15)
--- NOTE | 2018-08-31 17:52 | XR ---
EXAM DATE: 08/31/2018 5:34 PM EDT AGE/SEX: 68 years / Female INDICATIONS: Fever CLINICAL DATA: This is the patient's initial encounter. Patient reports that signs and symptoms have been present for 1 day and indicates a pain score of 0/10. MEDICAL/SURGICAL HISTORY: . Hypertension. Pancreatitis. Seizures . Appendectomy. Cholecystecto my [place] [facility] [place] S[place], [place]/2018. . FINDINGS: A single AP view of the chest demonstrates the lungs to be symmetrically aerated without evidence of mass, infiltrate or effusion. There is some chronic interstitial changes present. The cardiomediasti nal contours are unremarkable and stable. Osseous structures are stable. CONCLUSION: No new or acute pulmonary infiltrates. Electronically signed by: Jassi Leroy MD 08/31/2018 5:51 PM EDT
[2018-08-31 18:02] LABS: Baso % (Auto) 0.3 % (0.0-2.0); Eos # (Auto) 0.2 th/mm3 (0.0-0.4); Eos % (Auto) 1.6 % (0.0-4.0); Hematocrit 33.2 % (35.0-46.0); Hemoglobin 11.8 gm/dL (11.6-15.3); Lymph # (Auto) 1.9 th/mm3 (1.0-4.8); Lymph % (Auto) 19.9 % (9.0-44.0); Mean Corpuscular HGB Conc 35.7 % (32.0-36.0); Mean Corpuscular Hemoglobin 35.5 pg (27.0-34.0); Mean Corpuscular Volume 99.6 fL (80.0-100.0); Mean Platelet Volume 8.4 fL (7.0-11.0); Mono # (Auto) 0.9 th/mm3 (0.0-0.9); Mono % (Auto) 9.9 % (0.0-8.0); Neut # (Auto) 6.4 th/mm3 (1.8-7.7); Neut % (Auto) 68.3 % (16.0-70.0); Platelet Count 211 th/mm3 (150-450); Red Blood Count 3.33 mil/mm3 (4.00-5.30); Red Cell Distribution Width 12.7 % (11.6-17.2); White Blood Count 9.4 th/mm3 (4.0-11.0)
[2018-08-31 18:14] LABS: Activated Partial Thrombo Time 26.1 sec (24.3-30.1); Prothrombin Time 10.4 sec (9.8-11.6)
[2018-08-31 18:15] LABS: Alanine Aminotransferase 19 U/L (10-53); Albumin 3.3 g/dL (3.4-5.0); Anion Gap 12 meq/L (5-15); Aspartate Aminotransferase 15 U/L (15-37); Blood Urea Nitrogen 22 mg/dL (7-18); Calcium 8.5 mg/dL (8.5-10.1); Carbon Dioxide 21.4 meq/L (21.0-32.0); Chloride 108 meq/L (98-107); Glomerular Filtration Rate 30 mL/min (>89); Glucose,Random 105 mg/dL (74-106); Lipase 127 U/L (73-393); Magnesium 1.3 mg/dL (1.5-2.5); Sodium 141 meq/L (136-145)
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
[2018-08-31 18:19] LABS: Alkaline Phosphatase 68 U/L (45-117); Total Protein 6.4 g/dL (6.4-8.2)
[2018-08-31 18:26] LABS: Creatine Kinase 80 U/L (26-192)
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
[2018-08-31] MEDS ORDERED: Vancomycin Inj 1,000 MG in Sodium Chlor 0.9% Inj 250 ML IV.SIG STA (18:51)
[2018-08-31] MEDS ORDERED: Piperacil/Tazo 4.5 GM Premix 4.5 GM/100 ML BAG IV.SIG STA (18:51)
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
[2018-08-31] MEDS ORDERED: LORazepam 1 MG Tablet PO PRN (20:36)
[2018-08-31] MEDS ORDERED: Haloperidol Inj 5 MG/ML Ampul IV.PUSH PRN (20:36)
[2018-08-31 20:52] LABS: Bacteria,Urine Few /hpf; Bilirubin,Urine Negative (Negative); Color,Urine Yellow (Yellw/Straw); Glucose,Urine (UA) Negative (Negative); Hyaline Casts,Urine 8 /lpf (0-3); Leukocyte Esterase,Urine Negative (Negative); Mucus,Urine Few /lpf (Occasional); Nitrite,Urine Negative (Negative); Specific Gravity,Urine 1.009 (1.002-1.035); Squamous Epithelial Cell,Urine 24 /hpf (0-5)
[2018-08-31 20:53] LABS: Clarity,Urine Slightly Cloudy (Clear)
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
--- NOTE | 2018-08-31 21:23 | US ---
EXAM DATE: 08/31/2018 12:00 AM EDT AGE/SEX: 68 years / Female INDICATIONS: Increased BUN/Creatnine. CLINICAL DATA: This is the patient's initial encounter. Patient reports that signs and symptoms have been present for 1 day and indicates a pain score of 2/10. MEDICAL/SURGICAL HISTORY: Hypertension. ETOH abuse. Pancreatitis. Seizures. Appendectomy. Cho lecystectomy. Colonoscopy. Polypectomy. Vascular surgery. COMPARISON: No prior exams available for comparison. MEASUREMENTS: Right Kidney:__10.5 x 4.7 x 5.3 cm Left Kidney:__9.1 x 3.8 x 4.8 cm FINDINGS: Right Kidney: Normal echotexture and cortical thickness. No mass or hydronephrosis. Left Kidney: Normal echotexture and cortical thickness. No mass or hydronephrosis. Bladder: Within normal limits given the degree of distension. Other: None. CONCLUSION: 1. Unremarkable renal ultrasound exam. 2. Specifically, no sonographic evidence for obstructive uropathy. Electronically signed by: Jonas Benavides MD 08/31/2018 9:22 PM EDT
[2018-08-31] MEDS: Heparin - SQ 10,000 UNITS/ML Vial SQ SCH (22:39)
[2018-08-31] MEDS: levETIRAcetam 500 MG Tablet PO SCH (22:41)
[2018-08-31] MEDS: Sod Chloride 0.9% Inj 1,000 ML IV.CONT SCH (22:43)
[2018-08-31 23:58] LABS: Baso % (Auto) 0.4 % (0.0-2.0); Eos # (Auto) 0.2 th/mm3 (0.0-0.4); Eos % (Auto) 2.6 % (0.0-4.0); Hematocrit 34.3 % (35.0-46.0); Hemoglobin 12.1 gm/dL (11.6-15.3); Lymph # (Auto) 2.3 th/mm3 (1.0-4.8); Mean Corpuscular HGB Conc 35.3 % (32.0-36.0); Mean Corpuscular Hemoglobin 34.9 pg (27.0-34.0); Mean Corpuscular Volume 98.6 fL (80.0-100.0); Mean Platelet Volume 8.2 fL (7.0-11.0); Mono # (Auto) 0.6 th/mm3 (0.0-0.9); Neut # (Auto) 4.9 th/mm3 (1.8-7.7); Platelet Count 215 th/mm3 (150-450); Red Blood Count 3.48 mil/mm3 (4.00-5.30); Red Cell Distribution Width 12.3 % (11.6-17.2); White Blood Count 8.1 th/mm3 (4.0-11.0)
[2018-09-01 00:42] LABS: Alanine Aminotransferase 18 U/L (10-53); Albumin 3.4 g/dL (3.4-5.0); Alkaline Phosphatase 70 U/L (45-117); Anion Gap 7 meq/L (5-15); Aspartate Aminotransferase 18 U/L (15-37); Blood Urea Nitrogen 18 mg/dL (7-18); Calcium 8.5 mg/dL (8.5-10.1); Carbon Dioxide 25.9 meq/L (21.0-32.0); Chloride 111 meq/L (98-107); Glomerular Filtration Rate 43 mL/min (>89); Glucose,Random 77 mg/dL (74-106); Potassium 3.9 meq/L (3.5-5.1); Sodium 144 meq/L (136-145); Total Protein 6.5 g/dL (6.4-8.2)
[2018-09-01 01:14] LABS: Amphetamine Screen,Urine Neg (Neg); Barbiturate Screen,Urine Neg (Neg); Cannabinoid Screen,Urine Neg (Neg); Cocaine Screen,Urine Neg (Neg); Opiate Screen,Urine Neg (Neg)
[2018-09-01] MEDS: Folic Acid 1 MG Tablet PO SCH (12:02)
[2018-09-01] MEDS: Multivitamin/Minerals Therapeutic Tablet PO SCH (12:02)
[2018-09-01] MEDS: Heparin - SQ 10,000 UNITS/ML Vial SQ SCH ×2 (12:02→21:24)
[2018-09-01] MEDS: Sod Chloride 0.9% Inj 1,000 ML IV.CONT SCH (12:03)
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
[2018-09-01] MEDS: Acetaminophen 325 MG Tablet PO PRN (17:38)
[2018-09-01] MEDS: levETIRAcetam 500 MG Tablet PO SCH (21:23)
[2018-09-02] MEDS: Sod Chloride 0.9% Inj 1,000 ML IV.CONT SCH ×2 (02:33→14:52)
[2018-09-02 05:11] VITALS: RESP 18
[2018-09-02] MEDS: Folic Acid 1 MG Tablet PO SCH (08:06)
[2018-09-02] MEDS: Heparin - SQ 10,000 UNITS/ML Vial SQ SCH (08:06)
[2018-09-02] MEDS: Multivitamin/Minerals Therapeutic Tablet PO SCH (08:06)
[2018-09-02] MEDS: Acetaminophen 325 MG Tablet PO PRN (08:07)
[2018-09-02 09:21] VITALS: BP 168/98; PULSE 80; TEMP 96.7; O2SAT 97
[2018-09-02 11:10] LABS: Anion Gap 8 meq/L (5-15); Blood Urea Nitrogen 7 mg/dL (7-18); Calcium 9.1 mg/dL (8.5-10.1); Carbon Dioxide 29.1 meq/L (21.0-32.0); Chloride 104 meq/L (98-107); Glomerular Filtration Rate Greater Than 89 mL/min (>89); Glucose,Random 113 mg/dL (74-106); Potassium 3.7 meq/L (3.5-5.1); Sodium 141 meq/L (136-145)
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
--- NOTE | 2018-09-03 01:35 | ECG ---
Date Performed: 08/31/2018 Time Performed: 22:28:27 PTAGE: 68 years EKG: Sinus rhythm INCOMPLETE RIGHT BUNDLE BRANCH BLOCK BORDERLINE ECG PREVIOUS TRACING : 05/29/2018 20.00 Compared to previous tracing, ST/T wave changes no longer noted DOCTOR: Jaskaran Todd Interpretating Date/Time 09/03/2018 01:34:58
== END 2018-09-02 17:02 | disposition home or self-care (01) ==
LOC: NEPC 17:28 → INTOOBSV 19:52 → NEDA 19:52 → N04 21:18
PROVIDERS: ADMIT Hospitalist; ATTEND Hospitalist